=== PATIENT | female | born 1955 | race African-American/Black ===

== ENCOUNTER 2018-01-17 22:09 | Emergency (ER) | payer MEDICAID | END 2018-01-17 23:09 | disposition home or self-care (01) | LOC: D.ER 22:09 | DX: L03.032 Cellulitis of left toe (principal); M79.675 Pain in left toe(s); F17.200 Nicotine dependence, unspecified, uncomplicated; Z85.830 Personal history of malignant neoplasm of bone ==

== ENCOUNTER 2020-04-10 06:56 | Emergency (ER) | payer MEDICAID ==
[~2020-04-10] VITALS: Ht 154.9 cm; Wt 45.5 kg
[2020-04-10 07:12] VITALS: Ht 154.9 cm; Wt 45.5 kg
[2020-04-10] MEDS ORDERED: ZANAFLEX4 MG PO (07:16)
[2020-04-10] MEDS ORDERED: [UNRECOGNIZED DRUG - OTHER] (07:18)
[2020-04-10] MEDS ORDERED: BUTALB-APAP-CA1 EACH PO (07:19)
[2020-04-10 08:15] LABS: ANION GAP 7.3 mmol/L (8-16); CALCIUM 8.1 mg/dL (8.5-10.1); CARBON DIOXIDE 32.7 mmol/L (21.0-32.0); CREATININE - SERUM 1.2 mg/dL (0.6-1.3)
[2020-04-10 08:18] LABS: HEMATOCRIT 27.5 % (36.0-48.0); HEMOGLOBIN 11.6 g/dL (12-16); MCH 38.4 pg (26.0-34.0); MCHC 42.2 g/dL (31.0-37.0); MCV 91.1 fL (80.0-100.0); MEAN PLATELET VOLUME 9.6 fL (7.4-10.4); PLATELET COUNT 325 10x3/uL (130-400); RBC 3.02 10x6/uL (4.00-5.40); WBC 2.5 10x3/uL (4.8-10.8)
[2020-04-10 08:21] LABS: ALBUMIN 2.3 g/dL (3.4-5.0); BILIRUBIN - TOTAL 0.33 mg/dL (0.2-1.3); D-DIMER-QUANTITATIVE 1.31 ug/mLFEU (0.20-0.54); PROTEIN - SERUM 7.6 g/dL (6.4-8.2); URIC ACID 4.7 mg/dL (2.6-7.2)
[2020-04-10 08:24] LABS: INR 0.91 (0.85-1.17); PROTIME 12.2 SECONDS (11.6-15.0)
[2020-04-10 08:36] LABS: LYMPHOCYTES 66 % (15-50); MONOCYTES 32 % (2-11); NEUTROPHILS 2 % (40-80); PLATELET ESTIMATE NORMAL
[2020-04-10] MEDS ORDERED: ACETAMINOPHEN500 M1 PO (09:11)
[2020-04-10] MEDS ORDERED: IBUPROFEN800 MG PO (09:11)
[2020-04-10 10:00] VITALS: BP 169/91
== END 2020-04-10 10:00 | disposition home or self-care (01) ==
LOC: D.ER 06:56
PROVIDERS: Family Medicine
DX: M79.10 Myalgia, unspecified site (principal); M25.561 Pain in right knee; E87.6 Hypokalemia; M79.605 Pain in left leg; M79.604 Pain in right leg

== ENCOUNTER 2020-04-13 15:33 | Emergency (ER) | payer MEDICAID ==
[~2020-04-13] VITALS: Ht 154.9 cm; Wt 45.5 kg
[~2020-04-13 15:33] MED LIST: ACETAMINOPHEN500 M1 PO; BUTALB-APAP-CA1 EACH PO; IBUPROFEN800 MG PO; ZANAFLEX4 MG PO; [UNRECOGNIZED DRUG - OTHER]
[2020-04-13 15:37] VITALS: BP 122/79; Ht 154.9 cm; Wt 45.5 kg
[2020-04-13 16:11] LABS: HEMATOCRIT 26.8 % (36.0-48.0); HEMOGLOBIN 11.2 g/dL (12-16); MCH 38.2 pg (26.0-34.0); MCHC 41.8 g/dL (31.0-37.0); MCV 91.5 fL (80.0-100.0); MEAN PLATELET VOLUME 9.4 fL (7.4-10.4); PLATELET COUNT 297 10x3/uL (130-400); RBC 2.93 10x6/uL (4.00-5.40); RDW 16.4 % (11.5-14.5); WBC 2.5 10x3/uL (4.8-10.8)
[2020-04-13 16:24] LABS: ANION GAP 8.3 mmol/L (8-16); CALCIUM 8.4 mg/dL (8.5-10.1); CARBON DIOXIDE 31.8 mmol/L (21.0-32.0); POTASSIUM - SERUM 3.1 mmol/L (3.5-5.1)
[2020-04-13 16:31] LABS: ALBUMIN 2.1 g/dL (3.4-5.0); BILIRUBIN - TOTAL 0.44 mg/dL (0.2-1.3); PROTEIN - SERUM 7.5 g/dL (6.4-8.2)
[2020-04-13 16:55] LABS: LYMPHOCYTES 80 % (15-50); MONOCYTES 19 % (2-11); NEUTROPHILS 1 % (40-80); PLATELET ESTIMATE NORMAL
[2020-04-13 17:35] LABS: BILIRUBIN NEGATIVE (NEGATIVE); EPITHELIAL CELLS 0-5 /hpf (0-5); GLUCOSE NEGATIVE (NEGATIVE); KETONE NEGATIVE (NEGATIVE); NITRITE NEGATIVE (NEGATIVE); RED CELLS - URINE >50 /hpf (0-5); UROBILINOGEN NORMAL (NORMAL)
[2020-04-13 17:36] LABS: BACTERIA MANY /hpf (NEGATIVE)
[2020-04-13] MEDS ORDERED: VALTREX1000 MG PO (17:55)
[2020-04-13] MEDS ORDERED: BACTRIM DS TAB1 EAC1 PO (17:55)
[2020-04-13] MEDS ORDERED: HYDROCODON-ACE1 EAC7 PO (17:56)
== END 2020-04-13 18:42 | disposition home or self-care (01) ==
LOC: D.ER 15:33
PROVIDERS: Family Medicine
DX: B02.9 Zoster without complications (principal); N39.0 Urinary tract infection, site not specified; R11.2 Nausea with vomiting, unspecified; R10.11 Right upper quadrant pain

== ENCOUNTER 2020-04-21 10:15 | Inpatient (IN) | payer MEDICAID ==
[~2020-04-21] VITALS: Ht 154.9 cm; Wt 40.8 kg
[~2020-04-21 10:15] MED LIST changes: +BACTRIM DS TAB1 EAC1 PO; +HYDROCODON-ACE1 EAC7 PO; +VALTREX1000 MG PO
[2020-04-21 11:48] VITALS: BP 91/47
[2020-04-21 12:04] LABS: APTT 26.4 SECONDS (22.8-39.4); INR 1.19 (0.85-1.17)
[2020-04-21 12:05] LABS: CALC OSMOLALITY 258 mosm/kg (275-300); CALCIUM 7.8 mg/dL (8.5-10.1); CARBON DIOXIDE 26.5 mmol/L (21.0-32.0); CHLORIDE - SERUM 86 mmol/L (98-107); GLUCOSE 96 mg/dL (74-106); POTASSIUM - SERUM 3.1 mmol/L (3.5-5.1); SODIUM 124 mmol/L (136-145); UREA NITROGEN 37 mg/dL (7-18); eGFR NON AFRICAN AMERICAN 26 mL/min (90-120)
[2020-04-21 12:15] LABS: HEMATOCRIT 25.4 % (36.0-48.0); MCH 29.2 pg (26.0-34.0); MCHC 35.4 g/dL (31.0-37.0); MCV 82.5 fL (80.0-100.0); MEAN PLATELET VOLUME 10.6 fL (7.4-10.4); PLATELET COUNT 339 10x3/uL (130-400); RBC 3.08 10x6/uL (4.00-5.40); RDW 15.3 % (11.5-14.5)
[2020-04-21 12:20] LABS: ALBUMIN 1.5 g/dL (3.4-5.0); ALKALINE PHOSPHATASE 131 U/L (30-120); ALT (SGPT) 114 U/L (10-68); BILIRUBIN - TOTAL 2.07 mg/dL (0.2-1.3); CKMB 2.2 U/L (0.0-3.6); CREATINE KINASE 634 UL (21-215); PROTEIN - SERUM 7.7 g/dL (6.4-8.2); TROPONIN-I < 0.017 ng/mL (0.000-0.060)
[2020-04-21 13:01] VITALS: BP 112/69
[2020-04-21 13:15] LABS: BILIRUBIN NEGATIVE (NEGATIVE); KETONE NEGATIVE (NEGATIVE); NITRITE NEGATIVE (NEGATIVE); UROBILINOGEN NORMAL (NORMAL)
[2020-04-21 13:16] LABS: RED CELLS - URINE 25-50 /hpf (0-5)
[2020-04-21 13:18] LABS: BACTERIA MANY /hpf (NEGATIVE)
[2020-04-21 13:44] LABS: LYMPHOCYTES 62 % (15-50); MONOCYTES 33 % (2-11); NEUTROPHILS 4 % (40-80); PLATELET ESTIMATE NORMAL
--- NOTE | 2020-04-21 13:51 | NUR ---
REPORT CALLED TO TANNER AT THIS TIME.
--- NOTE | 2020-04-21 14:40 | NUR ---
PT ARRIVES TO UNIT PER YOON COREA IN PLACE, NO DISTRESS NOTED, PT MOVED SELF TO BED, REVIEWING DR NOTES, PT ASK FOR SOMETHING FOR HER COLD, UNSURE IF CODE SEPSIS WAS CALLED IN ER SO ONE IS CALLED HERE, PT HR 106 TEMP 102 BP 106/60 LACTIC ACID 2.9, NOTED THAT PT REPORTED SYMPTOMS SIMULAR TO COVID, COVID SWAB DONE AND SENT TO LAB, HOUSE AWARE OF NEED TO TRANSFER PT TO [facility] 2,
[2020-04-21 14:58] VITALS: BP 106/60; BMI 17.0
--- NOTE | 2020-04-21 16:54 | NUR ---
REPORT CALLED TO NASEEM ON MED 2, PT GOING TO ROOM 9401
--- NOTE | 2020-04-21 17:05 | NUR ---
RECEIVED PATIENT FROM MED-SURG PUI FOR COVID. PATIENT EASILY AROUSED, RESP EVEN AND UNLABORED. PATIENT APPEARS DIAPHORETIC BUT STATES SHE HAS HOT FLASHES FREQUENTLY. PATIENT PLACED IN DROPLET ISOLATION WHILE AWAITING COVID RESULTS. CALL LIGHT WITHIN REACH. PATIENT CONSUMING SMALL AMOUNTS OF PM MEAL AT THIS TIME. NO DISTRESS.
--- NOTE | 2020-04-21 17:21 | NUR ---
TAKEN TO MED 2 PER BED
--- NOTE | 2020-04-21 17:35 | NUR ---
LAB CALLED TO REPORT THAT PATIENT COVID TEST IS NEGATIVE. PATIENT TAKEN OUT OF DROPLET ISOLATION AND PLACED IN NEUTROPENIC ISOLATION DUE TO WBC COUNT OF 1.IV FLUIDS INFUSING ORDERED. NO DISTRESS.
--- NOTE | 2020-04-21 19:30 | NUR ---
PT IN BED, EYES CLOSED, RESP EVEN AND UNLABORED. NO DISTRESS NOTED, CL IN REACH, SR UP X 2.
[2020-04-21 20:00] VITALS: BP 98/56
--- NOTE | 2020-04-21 23:55 | NUR ---
PT TEMP 101.8, PT MEDICATED WITH TYLENOL 650MG.
[2020-04-22] VITALS: BP 110/68
--- NOTE | 2020-04-22 01:43 | NUR ---
I have reviewed this patient and I concur with the Shift Assessment completed by the Licensed Practical Nurse today this shift.
[2020-04-22 04:00] VITALS: BP 99/59
[2020-04-22 04:30] LABS: UDS - AMPHET NEGATIVE QUAL (NEGATIVE); UDS - BARB POSITIVE QUAL (NEGATIVE); UDS - BENZO NEGATIVE QUAL (NEGATIVE); UDS - COCAINE POSITIVE QUAL (NEGATIVE); UDS - OPIATE NEGATIVE QUAL (NEGATIVE); UDS - PCP NEGATIVE QUAL (NEGATIVE); UDS - THC NEGATIVE QUAL (NEGATIVE)
[2020-04-22 07:07] LABS: BASOPHILS 0 % (0-2); EOSINOPHILS 0.6 % (0-7); HEMOGLOBIN 7.6 g/dL (12-16); LYMPHOCYTES 30.8 % (15-50); MCH 30.2 pg (26.0-34.0); MCHC 36.2 g/dL (31.0-37.0); MCV 83.3 fL (80.0-100.0); MEAN PLATELET VOLUME 10.2 fL (7.4-10.4); MONOCYTES 68.6 % (2-11); NEUTROPHILS 0 % (40-80); PLATELET COUNT 295 10x3/uL (130-400); RBC 2.52 10x6/uL (4.00-5.40)
--- NOTE | 2020-04-22 07:17 | NUR ---
RECIEVED REPORT. ASSUMED CARE OF PATIENT. PATIENT REMAINS IN NEUTROPENIC PRECAUTIONS. SPECIAL DELIVERY MAIL CARRIER NOTIFIED PATIENT NEEDS TO BE MOVED TO DIFFERENT POD/UNIT. RESTING WITH EYES CLOSED. EASILY AROUSED. NO DISTRESS. CALL LIGHT WITHIN REACH. WHITE BOARD UPDATED, BEDSIDE SHIFT REPORT COMPLETE.
[2020-04-22 07:39] LABS: ANION GAP 12.4 mmol/L (8-16); CALCIUM 7.4 mg/dL (8.5-10.1); CREATININE - SERUM 1.8 mg/dL (0.6-1.3); POTASSIUM - SERUM 3.4 mmol/L (3.5-5.1)
[2020-04-22 08:01] LABS: WBC 1.7 10x3/uL (4.8-10.8)
[2020-04-22 08:14] LABS: ALBUMIN 0.9 g/dL (3.4-5.0); PROTEIN - SERUM 5.2 g/dL (6.4-8.2)
--- NOTE | 2020-04-22 14:00 | NUR ---
PATIENT RECEIVED TO ROOM, ALERT AND ORIENTED AND STABLE. CONTINUES ON NEURTAPENIC ISOLATION. ENCOURAGED TO USE CALL LIGHT FOR ASSSIT.
[2020-04-22 17:32] VITALS: BP 122/62
[2020-04-22 20:26] VITALS: BP 90/52
--- NOTE | 2020-04-22 20:40 | NUR ---
PATIENT RESTING IN BED WITH EYES CLOSED AND NO S/S OF DISTRESS. BED IN LOWEST POSITION AND CALL LIGHT WITHIN REACH. WILL CONTINUE TO MONITOR.
[2020-04-23 00:16] VITALS: BP 78/47
[2020-04-23 04:30] VITALS: BP 98/56
[2020-04-23 06:46] LABS: HEMATOCRIT 21.6 % (36.0-48.0); HEMOGLOBIN 7.8 g/dL (12-16); MCH 29.8 pg (26.0-34.0); MCHC 36.1 g/dL (31.0-37.0); MCV 82.4 fL (80.0-100.0); MEAN PLATELET VOLUME 11.1 fL (7.4-10.4); RBC 2.62 10x6/uL (4.00-5.40); RDW 15.2 % (11.5-14.5)
[2020-04-23 06:53] LABS: PLATELET COUNT 392 10x3/uL (130-400); WBC 1.2 10x3/uL (4.8-10.8)
[2020-04-23 07:35] LABS: ANION GAP 13.3 mmol/L (8-16); BILIRUBIN - TOTAL 1.23 mg/dL (0.2-1.3); CALCIUM 7.3 mg/dL (8.5-10.1); CARBON DIOXIDE 23.8 mmol/L (21.0-32.0); POTASSIUM - SERUM 3.1 mmol/L (3.5-5.1); PROTEIN - SERUM 5.9 g/dL (6.4-8.2); VANCOMYCIN - RANDOM 20.7 ug/mL (10.0-20.0)
[2020-04-23 07:36] LABS: ALBUMIN 1.4 g/dL (3.4-5.0)
[2020-04-23 08:54] VITALS: BP 104/58
[2020-04-23 11:27] LABS: ANISOCYTOSIS OCC; HYPOCHROMASIA OCC; LYMPHOCYTES 49 % (15-50); MONOCYTES 41 % (2-11); NEUTROPHILS 9 % (40-80); PLATELET ESTIMATE NORMAL; ROULEAUX OCC
[2020-04-23 13:05] VITALS: BP 116/71
[2020-04-23 14:13] VITALS: BMI 17.0
[2020-04-23 17:37] VITALS: BP 110/60
--- NOTE | 2020-04-23 18:26 | NUR ---
I have reviewed this patient and I concur with the Shift Assessment completed by the Licensed Practical Nurse today this shift.
--- NOTE | 2020-04-23 21:53 | NUR ---
PATIENT RESTING IN BED WITH NO S/S OF DISTRESS. PATIENT DENIES NEEDS AT THIS TIME. BED IN LOWEST POSITION AND CALL LIGHT WITHIN REACH. ADMINISTERED MEDS PER ORDERS. ENCOURAGED PATIENT TO CALL IF SHE HAS NEEDS. WILL CONTINUE TO MONITOR.
[2020-04-23 22:03] VITALS: BP 90/49
[2020-04-24] VITALS: BP 107/56
[2020-04-24 04:00] VITALS: BP 112/64
[2020-04-24 09:54] LABS: BASOPHILS 0 % (0-2); EOSINOPHILS 0.6 % (0-7); HEMATOCRIT 21.9 % (36.0-48.0); HEMOGLOBIN 7.7 g/dL (12-16); IMMATURE GRANULOCYTES 1.2 % (0-5); LYMPHOCYTES 44.3 % (15-50); MCH 27.8 pg (26.0-34.0); MCHC 35.2 g/dL (31.0-37.0); MEAN PLATELET VOLUME 9.2 fL (7.4-10.4); MONOCYTES 53.9 % (2-11); NEUTROPHILS 0 % (40-80); PLATELET COUNT 414 10x3/uL (130-400); RBC 2.77 10x6/uL (4.00-5.40); RDW 15.1 % (11.5-14.5)
[2020-04-24 10:12] LABS: ANA REFLEX - ANTICHROMATIN ABS <0.2 AI (0.0-0.9); ANA REFLEX - CENTROMERE B ABS <0.2 AI (0.0-0.9); ANA REFLEX - DBL STRANDED DNA <1 IU/mL (0-9); ANA REFLEX - DIRECT Positive (Negative); ANA REFLEX - JO-1 AB <0.2 AI (0.0-0.9); ANA REFLEX - RNP ANTIBODIES 0.4 AI (0.0-0.9); ANA REFLEX - SCL-70 <0.2 AI (0.0-0.9); ANA REFLEX - SJOGRENS AB SSA >8.0 AI (0.0-0.9); ANA REFLEX - SJOGRENS AB SSB 4.2 AI (0.0-0.9); ANA REFLEX - SMITH AB <0.2 AI (0.0-0.9)
[2020-04-24 10:14] LABS: MCV 79.1 fL (80.0-100.0); WBC 1.7 10x3/uL (4.8-10.8)
[2020-04-24 10:16] LABS: ALBUMIN 1.4 g/dL (3.4-5.0); ANION GAP 9.3 mmol/L (8-16); BILIRUBIN - TOTAL 1.45 mg/dL (0.2-1.3); CALCIUM 7.7 mg/dL (8.5-10.1); CARBON DIOXIDE 24.8 mmol/L (21.0-32.0); CREATININE - SERUM 1.7 mg/dL (0.6-1.3); POTASSIUM - SERUM 3.1 mmol/L (3.5-5.1); PROTEIN - SERUM 5.8 g/dL (6.4-8.2)
[2020-04-24 11:03] VITALS: BP 118/70
[2020-04-24 15:00] VITALS: BP 105/78
[2020-04-24 15:15] VITALS: BP 102/59
[2020-04-24 20:00] VITALS: BP 119/65
[2020-04-25 04:00] VITALS: BP 95/53
--- NOTE | 2020-04-25 07:05 | NUR ---
A&O RESTING IN BED WITH EYES OPEN. NO C/O PAIN. NO S/S OF ACUTE DISTRESS NOTED. ON NEUTROPENIC PRECAUTIONS AND CONTACT ISOLATION FOR MRSA IN BLOOD. ON 2L O2, NC. DENIES ANY NEEDS AT THIS TIME. CALL LIGHT IN REACH. WILL CONTINUE TO MONITOR.
--- NOTE | 2020-04-25 07:15 | NUR ---
I have reviewed this patient and I concur with the Shift Assessment completed by the Licensed Practical Nurse today this shift.
[2020-04-25 07:54] LABS: MCHC 36.6 g/dL (31.0-37.0); MEAN PLATELET VOLUME 9.7 fL (7.4-10.4); PLATELET COUNT 445 10x3/uL (130-400); RDW 15.4 % (11.5-14.5)
[2020-04-25 08:12] LABS: RBC 2.16 10x6/uL (4.00-5.40); WBC 2.2 10x3/uL (4.8-10.8)
[2020-04-25 08:14] LABS: HEMATOCRIT 18.3 % (36.0-48.0); HEMOGLOBIN 6.7 g/dL (12-16); MCV 84.7 fL (80.0-100.0)
[2020-04-25 08:32] LABS: LYMPHOCYTES 39 % (15-50); MONOCYTES 52 % (2-11); NEUTROPHILS 9 % (40-80); PLATELET ESTIMATE NORMAL
[2020-04-25 08:43] LABS: ALBUMIN 1.3 g/dL (3.4-5.0); ANION GAP 10.9 mmol/L (8-16); BILIRUBIN - TOTAL 1.24 mg/dL (0.2-1.3); CALCIUM 7.7 mg/dL (8.5-10.1); CARBON DIOXIDE 22.3 mmol/L (21.0-32.0); CREATININE - SERUM 1.7 mg/dL (0.6-1.3); MAGNESIUM - SERUM 1.6 mg/dL (1.8-2.4); PHOSPHOROUS 2.8 mg/dL (2.5-4.9); POTASSIUM - SERUM 3.2 mmol/L (3.5-5.1); PROTEIN - SERUM 5.9 g/dL (6.4-8.2); VANCOMYCIN - RANDOM 17.6 ug/mL (10.0-20.0)
[2020-04-25 09:58] VITALS: BP 91/58
[2020-04-25 10:50] LABS: % SATURATION 31 % (15-55); IRON 22 ug/dl (35-150); TOTAL IRON BIND CAPACITY 69 ug/dl (260-445)
[2020-04-25 10:51] LABS: UNSAT IRON BIND CAPACITY 47 ug/dl (150-375)
[2020-04-25 11:26] LABS: LDH 191 U/L (81-234)
[2020-04-25 11:27] LABS: FERRITIN 2512 ng/mL (3-244)
--- NOTE | 2020-04-25 11:36 | NUR ---
FIRST UNIT OF PRBC INFUSING. VITALS STABLE. NO C/O PAIN. NO S/S OF ACUTE DISTRESS NOTED. WILL CONTINUE TO MONITOR.
[2020-04-25 13:33] VITALS: BP 118/70
--- NOTE | 2020-04-25 14:40 | NUR ---
FIRST UNIT OF PRBC COMPLETE, 310ML INFUSED. VITALS STABLE. NO C/O PAIN. NO S/S OF ACUTE DISTRESS NOTED. SECOND UNIT OF PRBC INFUSING. WILL CONTINUE TO MONITOR.
[2020-04-25 18:25] VITALS: BP 119/66
[2020-04-26 01:27] LABS: HEMATOCRIT 27.8 % (36.0-48.0); HEMOGLOBIN 10.1 g/dL (12-16)
[2020-04-26 04:00] VITALS: BP 115/63
--- NOTE | 2020-04-26 07:10 | NUR ---
A&O RESTING IN BED WITH EYES OPEN. NO C/O PAIN. NO S/S OF ACUTE DISTRESS NOTED. ON NEUTROPENIC AND CONTACT PRECAUTIONS FOR MRSA IN BLOOD. UP WITH ASSIST. ON 2L O2, NC. IV TO RIGHT AC, NS WITH 40K+ INFUSING @ 75ML/HR. SITE PATENT WITHOUT REDNESS OR SWELLING. DENIES ANY NEEDS AT THIS TIME. CALL LIGHT IN REACH. WILL CONTINUE TO MONITOR.
--- NOTE | 2020-04-26 07:21 | NUR ---
I have reviewed this patient and I concur with the Shift Assessment completed by the Licensed Practical Nurse today this shift.
--- NOTE | 2020-04-26 08:14 | NUR ---
WARM BLANKET PROVIDED. PATIENT IS WITHOUT DISTRESS.NEUTROPENIC ISOLATION MAINTAINED
[2020-04-26 08:40] VITALS: BP 115/69
[2020-04-26 09:16] LABS: HEMATOCRIT 25.8 % (36.0-48.0); MCH 33.4 pg (26.0-34.0); MCHC 38.8 g/dL (31.0-37.0); MCV 86.3 fL (80.0-100.0); MEAN PLATELET VOLUME 11.5 fL (7.4-10.4); PLATELET COUNT 411 10x3/uL (130-400); RBC 2.99 10x6/uL (4.00-5.40); RDW 15.1 % (11.5-14.5); WBC 2.9 10x3/uL (4.8-10.8)
[2020-04-26 12:25] VITALS: BP 122/69
--- NOTE | 2020-04-26 12:50 | NUR ---
Nutrition follow-up: Pt remains in isolation for neutropenia, MRSA Diet regular neutopenic with Ensure TID PO intake ~50% of some meals per WIRE REPAIRER labs reviewed Wt: 89# Will continue to provide food choices and honor all food preferences. RDN following.
[2020-04-26 13:05] LABS: EOSINOPHILS 3 % (0-7); LYMPHOCYTES 36 % (15-50); MONOCYTES 35 % (2-11); NEUTROPHILS 18 % (40-80); PLATELET ESTIMATE INCREASED
[2020-04-26 13:06] LABS: ROULEAUX OCC
[2020-04-26 14:10] LABS: ALPHA FETOPROTEIN -(TUMOR MRK) <0.9 ng/mL (0.0-8.3); CA125 68.8 U/mL (0.0-38.1); CEA 3.5 ng/mL (0.0-4.7)
[2020-04-26 16:38] VITALS: BP 109/66
--- NOTE | 2020-04-26 19:10 | NUR ---
ASSUMED CARE OF PATIENT AT 1900, PATIENT RESTING QUIETLY WITH EYES CLOSED, AWAKENS TO VERBAL STIMULI, NO DISTRESS NOTED, IV INFUSING WITHOUT COMPLICATIONS, PATIENT INCONTINENT OF STOOL AND URINE, WILL CONTINUE TO MONITOR PATIENT, CALL LIGHT WITHIN REACH
[2020-04-26 20:00] VITALS: BP 120/65
[2020-04-27] VITALS: BP 105/52
[2020-04-27 04:00] VITALS: BP 130/73
[2020-04-27 06:38] LABS: BASOPHILS 0 % (0-2); EOSINOPHILS 1.3 % (0-7); HEMATOCRIT 26.6 % (36.0-48.0); HEMOGLOBIN 9.2 g/dL (12-16); IMMATURE GRANULOCYTES 0.3 % (0-5); LYMPHOCYTES 21.7 % (15-50); MCH 29.3 pg (26.0-34.0); MCHC 34.6 g/dL (31.0-37.0); MCV 84.7 fL (80.0-100.0); MEAN PLATELET VOLUME 9.9 fL (7.4-10.4); NEUTROPHILS 37.7 % (40-80); PLATELET COUNT 422 10x3/uL (130-400); RBC 3.14 10x6/uL (4.00-5.40); RDW 15.2 % (11.5-14.5)
[2020-04-27 07:01] LABS: ALBUMIN 1.1 g/dL (3.4-5.0); ANION GAP 13.2 mmol/L (8-16); BILIRUBIN - TOTAL 0.75 mg/dL (0.2-1.3); CALCIUM 7.7 mg/dL (8.5-10.1); CARBON DIOXIDE 23.8 mmol/L (21.0-32.0); CREATININE - SERUM 1.3 mg/dL (0.6-1.3); PHOSPHOROUS 3.1 mg/dL (2.5-4.9); PROTEIN - SERUM 5.9 g/dL (6.4-8.2); VANCOMYCIN - RANDOM 19.3 ug/mL (10.0-20.0)
--- NOTE | 2020-04-27 07:05 | NUR ---
A&O RESTING IN BED WITH EYES OPEN. NO C/O PAIN. NO S/S OF ACUTE DISTRESS NOTED. ON NEUTROPENIC AND CONTACT PRECAUTIONS. UP WITH WALKER. ON 2L O2, NC. IV TO RIGHT AC, NS WITH 40K+ INFUSING @ 75ML/HR. SITE PATENT WITHOUT REDNESS OR SWELLING. DENIES ANY NEEDS AT THIS TIME. CALL LIGHT IN REACH. WILL CONTINUE TO MONITOR.
[2020-04-27 07:16] LABS: CA 19-9 12 U/mL (0-35)
[2020-04-27 09:16] VITALS: BP 121/69
[2020-04-27 12:57] VITALS: BP 123/72
--- NOTE | 2020-04-27 13:36 | NUR ---
I have reviewed this patient and I concur with the Shift Assessment completed by the Licensed Practical Nurse today this shift.
[2020-04-27 17:06] VITALS: BP 126/77
--- NOTE | 2020-04-27 18:55 | NUR ---
A&O RESTING IN BED WITH EYES OPEN. NO C/O PAIN. NO S/S OF ACUTE DISTRESS NOTED. DENIES ANY NEEDS AT THIS TIME. CALL LIGHT IN REACH. WILL CONTINUE TO MONITOR.
--- NOTE | 2020-04-27 19:45 | NUR ---
ASSUMED CARE OF PATIENT AT 1900, PATIENT RESTING QUIETLY WITH EYES CLOSED, AWAKENS TO VERBAL STIMULI, NO DISTRESS NOTED, WILL CONTINUE TO MONITOR PATIENT, CALL LIGHT WITHIN REACH
[2020-04-27 20:00] VITALS: BP 110/64
[2020-04-28 04:00] VITALS: BP 118/69
[2020-04-28 07:48] LABS: ANION GAP 13.3 mmol/L (8-16); CALCIUM 7.8 mg/dL (8.5-10.1); CARBON DIOXIDE 21.7 mmol/L (21.0-32.0); CREATININE - SERUM 1.3 mg/dL (0.6-1.3); HEMATOCRIT 25.1 % (36.0-48.0); MAGNESIUM - SERUM 1.3 mg/dL (1.8-2.4); MCH 30.9 pg (26.0-34.0); MCHC 35.9 g/dL (31.0-37.0); MCV 86.3 fL (80.0-100.0); MEAN PLATELET VOLUME 9.7 fL (7.4-10.4); PHOSPHOROUS 3.1 mg/dL (2.5-4.9); PLATELET COUNT 414 10x3/uL (130-400); RBC 2.91 10x6/uL (4.00-5.40); RDW 15.5 % (11.5-14.5); VANCOMYCIN - RANDOM 10.5 ug/mL (10.0-20.0)
[2020-04-28 07:49] LABS: WBC 5.5 10x3/uL (4.8-10.8)
--- NOTE | 2020-04-28 08:30 | NUR ---
PT ALERT X 4. BREATH SOUNDS CLEAR BILAT. IV TO RIGHT AC NOT WORKING, REMOVED, TIP INTACT. 22G IV PLACED IN LEFT HAND, 1 ATTEMPT, PT TOLERATED WELL. PT REQUESTED BEDPAN. WHEN TOLD THAT SHE HAD TO GET UP TO THE BATHROOM AND NOT USE THE BEDPAN SHE CHOSE TO URINATE IN THE BED. LINENS CHANGED.
[2020-04-28 09:47] LABS: LYMPHOCYTES 18 % (15-50); MONOCYTES 23 % (2-11); NEUTROPHILS 59 % (40-80); PLATELET ESTIMATE NORMAL
[2020-04-28 17:45] VITALS: BP 113/65
[2020-04-28 20:00] VITALS: BP 126/81
[2020-04-29 07:10] LABS: BASOPHILS 0.3 % (0-2); EOSINOPHILS 0.7 % (0-7); HEMATOCRIT 26.3 % (36.0-48.0); HEMOGLOBIN 9.1 g/dL (12-16); IMMATURE GRANULOCYTES 1.2 % (0-5); LYMPHOCYTES 15.8 % (15-50); MCH 29.6 pg (26.0-34.0); MCHC 34.6 g/dL (31.0-37.0); MCV 85.7 fL (80.0-100.0); MEAN PLATELET VOLUME 9.6 fL (7.4-10.4); MONOCYTES 18.3 % (2-11); NEUTROPHILS 63.7 % (40-80); PLATELET COUNT 473 10x3/uL (130-400); RBC 3.07 10x6/uL (4.00-5.40); WBC 6.9 10x3/uL (4.8-10.8)
[2020-04-29 07:19] LABS: ANION GAP 13.2 mmol/L (8-16); CALCIUM 7.8 mg/dL (8.5-10.1); CARBON DIOXIDE 22.7 mmol/L (21.0-32.0); CREATININE - SERUM 1.4 mg/dL (0.6-1.3); MAGNESIUM - SERUM 1.3 mg/dL (1.8-2.4); PHOSPHOROUS 3.4 mg/dL (2.5-4.9); POTASSIUM - SERUM 3.9 mmol/L (3.5-5.1)
[2020-04-29 09:17] VITALS: BP 117/72
--- NOTE | 2020-04-29 13:54 | NUR ---
PT ALERT X 4. BREATH SOUNDS DIMINISHED TO LOWER LOBES. GIVEN PT INCENTIVE SPIROMETER AND INSTRUCTED HOW TO USE. PT IS REFUSING TO GET OUT OF THE BED TO USE THE RESTROOM. HAS BEEN UNCOOPERATIVE WITH TREATMENT. ENCOURAGED PT TO INCREASE HER INVOLVEMENT IN HER TREATMENT PLAN. IV TO LEFT HAND PATENT, DRESSING CDI. BED LOW, CALL LIGHT IN REACH. NO OTHER NEEDS AT THIS TIME.
[2020-04-29 19:09] VITALS: BP 124/75
[2020-04-29 20:00] VITALS: BP 131/74
[2020-04-30] VITALS: BP 122/67
[2020-04-30 04:00] VITALS: BP 128/72
[2020-04-30 05:28] LABS: BASOPHILS 0.5 % (0-2); EOSINOPHILS 1.2 % (0-7); HEMATOCRIT 26.9 % (36.0-48.0); HEMOGLOBIN 9.3 g/dL (12-16); IMMATURE GRANULOCYTES 4.5 % (0-5); LYMPHOCYTES 16.2 % (15-50); MCH 29.3 pg (26.0-34.0); MCHC 34.6 g/dL (31.0-37.0); MCV 84.9 fL (80.0-100.0); MONOCYTES 15.2 % (2-11); NEUTROPHILS 62.4 % (40-80); PLATELET COUNT 446 10x3/uL (130-400); RBC 3.17 10x6/uL (4.00-5.40); RDW 16.2 % (11.5-14.5); WBC 5.7 10x3/uL (4.8-10.8)
[2020-04-30 06:01] LABS: ANION GAP 10.4 mmol/L (8-16); CALCIUM 7.7 mg/dL (8.5-10.1); CARBON DIOXIDE 23.5 mmol/L (21.0-32.0); CREATININE - SERUM 1.4 mg/dL (0.6-1.3); PHOSPHOROUS 3.5 mg/dL (2.5-4.9); POTASSIUM - SERUM 3.9 mmol/L (3.5-5.1)
[2020-04-30 06:03] LABS: MAGNESIUM - SERUM 1.9 mg/dL (1.8-2.4)
[2020-04-30 08:56] VITALS: BP 110/65
--- NOTE | 2020-04-30 11:37 | NUR ---
PT ALERT X 4. BREATH SOUNDS CLEAR BILAT. IV TO RIGHT AC, PATENT, DRESSING CDI. PT REPORTING NO PAIN AT THIS TIME. PT UP TO CHAIR. LINENS CHANGED. BED LOW, CALL LIGHT IN REACH. NO OTHER NEEDS AT THIS TIME.
--- NOTE | 2020-04-30 11:56 | MORECARE ---
CASE MANAGEMENT DISCHARGE SUMMARY PATIENT: JHON SILVA UNIT: [id number] ADM DATE: 04/21/20 AGE: 64 : 53 SEX: F ROOM/BED: D.[facility]3 AUTHOR: MARIO BAKER PHYSICIAN: REFERRING PHYSICIAN: EMEKA ORTEZ MD DATE OF SERVICE: 04/30/20 Discharge Plan Patient Name: JHON SILVA Facility: [facility]:[place] : 1955 Planned Disposition: Anticipated Discharge Date: Discharge Date: Expected LOS: Initial Reviewer: [email or web address] Initial Review Date: 04/21/2020 Generated: 04/30/20 12:55 pm Patient Name: JHON SILVA Page 10854 at 1156 All edits/amendments must be made on the electronic document DICTATION DATE: 04/30/20 1155 CORPORATE ADMINISTRATIVE ASSISTANT: MILLY 04/30/20 1155 RPT#: [id number] DC DATE: STATUS: ADM IN [facility] [address] [place] [address] END OF REPORT
[2020-04-30 12:39] VITALS: BP 112/60
[2020-04-30 18:45] VITALS: BP 141/81
[2020-04-30 20:00] VITALS: BP 125/68
[2020-05-01 00:36] VITALS: BP 134/75
[2020-05-01 04:00] VITALS: BP 107/68
[2020-05-01 05:19] LABS: BASOPHILS 0.9 % (0-2); EOSINOPHILS 0.9 % (0-7); HEMATOCRIT 26.5 % (36.0-48.0); HEMOGLOBIN 9.1 g/dL (12-16); IMMATURE GRANULOCYTES 1.1 % (0-5); LYMPHOCYTES 18.8 % (15-50); MCH 29.8 pg (26.0-34.0); MCHC 34.3 g/dL (31.0-37.0); MEAN PLATELET VOLUME 9.3 fL (7.4-10.4); MONOCYTES 16.8 % (2-11); NEUTROPHILS 61.5 % (40-80); PLATELET COUNT 506 10x3/uL (130-400); RBC 3.05 10x6/uL (4.00-5.40); RDW 16.2 % (11.5-14.5); WBC 5.5 10x3/uL (4.8-10.8)
[2020-05-01 05:28] LABS: MCV 86.9 fL (80.0-100.0)
[2020-05-01 05:43] LABS: ANION GAP 11.1 mmol/L (8-16); CALCIUM 7.5 mg/dL (8.5-10.1); CARBON DIOXIDE 23.6 mmol/L (21.0-32.0); CREATININE - SERUM 1.5 mg/dL (0.6-1.3); MAGNESIUM - SERUM 1.5 mg/dL (1.8-2.4); PHOSPHOROUS 3.7 mg/dL (2.5-4.9); POTASSIUM - SERUM 3.7 mmol/L (3.5-5.1); VANCOMYCIN - RANDOM 17.3 ug/mL (10.0-20.0)
--- NOTE | 2020-05-01 08:34 | NUR ---
SHE IS ALERT, EATING BREAKFAST. SHE STATES SHE HAS HAD DIARRHEA DURING THE NIGHT. THE CALL LIGHT IS WITHIN REACH.
[2020-05-01 09:13] VITALS: BP 132/80
[2020-05-01 11:08] VITALS: BP 115/68
--- NOTE | 2020-05-01 13:36 | MORECARE ---
CASE MANAGEMENT DISCHARGE SUMMARY PATIENT: JHON SILVA UNIT: [id number] ADM DATE: 04/21/20 AGE: 64 : 53 SEX: F ROOM/BED: D[facility] AUTHOR: MARIO BAKER PHYSICIAN: REFERRING PHYSICIAN: EMEKA ORTEZ MD DATE OF SERVICE: 05/01/20 Discharge Plan Patient Name: JHON SILVA [facility] : 1955 Planned Disposition: Anticipated Discharge Date: Discharge Date: Expected LOS: Initial Reviewer: [email or web address] Initial Review Date: 05/01/2020 Generated: 05/01/20 2:36 pm Last DP export: 04/30/20 10:55 a Patient Name: JHON SILVA Page 69261 at 1336 All edits/amendments must be made on the electronic document DICTATION DATE: 05/01/20 1336 ROUTING CLERK: MILLY 05/01/20 1336 RPT#: [id number] DC DATE: STATUS: ADM IN [facility] [address] [place] [address] END OF REPORT
--- NOTE | 2020-05-01 13:53 | MORECARE ---
CASE MANAGEMENT DISCHARGE SUMMARY PATIENT: JHON SILVA UNIT: [id number] ADM DATE: 04/21/20 AGE: 64 : 53 SEX: F ROOM/BED: D.2233 AUTHOR: SAMUELDOC PHYSICIAN: REFERRING PHYSICIAN: EMEKA ORTEZ MD DATE OF SERVICE: 05/01/20 Discharge Plan Patient Name: JHON SILVA Facility: [facility]:[place] : 1955 Planned Disposition: Anticipated Discharge Date: Discharge Date: Expected LOS: Initial Reviewer: [email or web address] Initial Review Date: 05/01/2020 Generated: 05/01/20 2:53 pm Comments DCP- Discharge Planning Updated by [email or web address]: Ira Taveras on 05/01/20 12:[address] Patient Name: JHON SILVA Admission Status: ER Accout number: [id number] Admission Date: 04-21-2020 : 1955 Admission Diagnosis:SEPSIS, UNSPECIFIED ORGANISM Attending: EMEKA ORTEZ Current LOS: 10 Anticipated DC Date: Planned Disposition: Primary Insurance: [place] Discharge Planning Comments: CM met with patient at bedside after explaining CM role and obtaining verbal consent. CM discussed availability / needs of home health, REHAB and medical equipment. PATIENT STATES WILL NEED HH AND EQUI[PMENT. JORDI SIGNED FOR [facility] OR [facility]. USING WALKER WITH PT. CURRENTLY LIVES WITH HER DAUGHTER SANTY. CM TO FOLLOW AND ASSIST NEEDED. Workforce Management Manager: Ira Taveras DCPIA - Discharge Planning Initial Assessment Updated by [email or web address]: Ira Taveras on 05/01/20 1:44 pm * Is the patient Alert and Oriented? Yes * PCP NONE * Pharmacy [facility] * Preadmission Environment Home with Family * ADLs Independent * Equipment None * Other Equipment STATES WILL NEED WALKER, ETC. * List name and contact numbers for known caregivers / representatives who currently or will assist patient after discharge: SANTY CARDENAS-DAUGHTER LIVING WITH [phone] [place] [address] * Community resources currently utilized None * Additional services required to return to the preadmission environment? Yes * Can the patient safely return to the preadmission environment? Yes * Has this patient been hospitalized within the prior 30 days at any hospital? No External Providers External Provider: [facility] Next Contact Date: Service Request Date: Service Type: Resolution: Reviewer: Comments: External Provider: Ladan Wise [facility] Next Contact Date: Service Request Date: Service Type: Resolution: Reviewer: Comments: Coverage Notice Reviewer: [email or web address] Rosina Taveras Notice Issued Date-Time: 05/01/2020 13:52 Notice Type: Patient Choice Letter Notice Delivered To: Patient Relationship to Patient: Policy Service Coordinator Name: Delivery Method: - Kavita Days: Prior Verbal Notification: Recipient Understood Notice: Recipient Signature: Med Rec Note Co-signed by Attending: Coverage Notice Comment: Last DP export: 05/01/20 12:36 pm Patient Name: JHON SILVA Page 65264 at 1353 All edits/amendments must be made on the electronic document DICTATION DATE: 05/01/20 1353 FLUID DYNAMICIST: MILLY 05/01/20 1353 RPT#: [id number] DC DATE: STATUS: ADM IN [facility] [address] [place] [address] END OF REPORT
--- NOTE | 2020-05-01 14:35 | NUR ---
Nutrition follow-up: Pt continues in neutropenic precautions Diet: Regular neutropenic PO intake fair at this time No new wt to assess labs reviewed Please weigh pt RDN following.
[2020-05-01 15:09] VITALS: Ht 154.9 cm; Wt 40.8 kg
[2020-05-01] MEDS ORDERED: MIDODRINE HCL5 MG PO (15:54)
[2020-05-01] MEDS ORDERED: NICODERM CQ1 EAC3 TRANSDERM (15:54)
[2020-05-01] MEDS ORDERED: FLORAJEN3 CAPS460 MG PO (15:55)
[2020-05-01] MEDS ORDERED: PROTONIX40 MG PO (15:55)
[2020-05-01] MEDS ORDERED: VIBRAMYCIN 100100 MG PO (15:59)
--- NOTE | 2020-05-01 16:02 | MORECARE ---
CASE MANAGEMENT DISCHARGE SUMMARY PATIENT: JHON SILVA UNIT: [id number] ADM DATE: 04/21/20 AGE: 64 : 53 SEX: F ROOM/BED: D.2233 AUTHOR: SAMUEL,DOC PHYSICIAN: REFERRING PHYSICIAN: EMEKA ORTEZ MD DATE OF SERVICE: 05/01/20 Discharge Plan Patient Name: JHON SILVA Facility: [facility]:[place] : 1955 Planned Disposition: Anticipated Discharge Date: Discharge Date: Expected LOS: Initial Reviewer: [email or web address] Initial Review Date: 05/01/2020 Generated: 05/01/20 5:01 pm Comments DCP- Discharge Planning Updated by [email or web address]: Ira Taveras on 05/01/20 3:[address] Patient Name: JHON SILVA Admission Status: ER Accout number: [id number] Admission Date: 04-21-2020 : 1955 Admission Diagnosis:SEPSIS, UNSPECIFIED ORGANISM Attending: EMEKA ORTEZ Current LOS: 10 Anticipated DC Date: Planned Disposition: Primary Insurance: [place] Discharge Planning Comments: I AM FAXING REFERRAL TO [facility] AND I WILL FAX ORDER FOR WALKER TO [facility]. ANTICIPATE DC TODAY. Marketing Analytics Manager: Ira Taveras DCP- Discharge Planning Updated by [email or web address]: Ira Taveras on 05/01/20 12:[address] Patient Name: JHON SILVA Admission Status: ER Accout number: [id number] Admission Date: 04-21-2020 : 1955 Admission Diagnosis:SEPSIS, UNSPECIFIED ORGANISM Attending: EMEKA ORTEZ Current LOS: 10 Anticipated DC Date: Planned Disposition: Primary Insurance: [place] Discharge Planning Comments: CM met with patient at bedside after explaining CM role and obtaining verbal consent. CM discussed availability / needs of home health, REHAB and medical equipment. PATIENT STATES WILL NEED HH AND EQUI[PMENT. JORDI SIGNED FOR [facility] OR [facility]. USING WALKER WITH PT. CURRENTLY LIVES WITH HER DAUGHTER SANTY. CM TO FOLLOW AND ASSIST NEEDED. Marketing Analytics Manager: Ira Taveras DCPIA - Discharge Planning Initial Assessment Updated by [email or web address]: Ira Taveras on 05/01/20 1:44 pm * Is the patient Alert and Oriented? Yes * PCP NONE * Pharmacy [facility] * Preadmission Environment Home with Family * ADLs Independent * Equipment None * Other Equipment STATES WILL NEED WALKER, ETC. * List name and contact numbers for known caregivers / representatives who currently or will assist patient after discharge: SANTY CARDENAS-DAUGHTER LIVING WITH [phone] [place] [id number] * Community resources currently utilized None * Additional services required to return to the preadmission environment? Yes * Can the patient safely return to the preadmission environment? Yes * Has this patient been hospitalized within the prior 30 days at any hospital? No Coverage Notice Reviewer: [id number] - Ira Taveras Notice Issued Date-Time: 05/01/2020 13:52 Notice Type: Patient Choice Letter Notice Delivered To: Patient Relationship to Patient: Ammunition And Explosives Handler Name: Delivery Method: HAND - Hand Delivered Kavita Days: Prior Verbal Notification: Recipient Understood Notice: Yes Recipient Signature: Yes Med Rec Note Co-signed by Attending: Coverage Notice Comment: [facility]. Last DP export: 05/01/20 12:53 pm Patient Name: JHON SILVA Page 17900 at 1602 All edits/amendments must be made on the electronic document DICTATION DATE: 05/01/20 160 TELEVISION MECHANIC: MILLY 05/01/20 160 RPT#: [id number] DC DATE: STATUS: ADM IN [facility] [address] [place] [address] END OF REPORT
--- NOTE | 2020-05-01 16:42 | MORECARE ---
CASE MANAGEMENT DISCHARGE SUMMARY PATIENT: JHON SILVA UNIT: [id number] ADM DATE: 04/21/20 AGE: 64 : 51 SEX: F ROOM/BED: D.2233 AUTHOR: SAMUEL,DOC PHYSICIAN: REFERRING PHYSICIAN: EMEKA ORTEZ MD DATE OF SERVICE: 05/01/20 Discharge Plan Patient Name: JHON SILVA Facility: [facility]:[place] : 1955 Planned Disposition: Anticipated Discharge Date: Discharge Date: Expected LOS: Initial Reviewer: [email or web address] Initial Review Date: 05/01/2020 Generated: 05/01/20 5:41 pm Comments DCP- Discharge Planning Updated by [email or web address]: Ira Taveras on 05/01/20 3:[address] Patient Name: JHON SILVA Admission Status: ER Accout number: [id number] Admission Date: 04-21-2020 : 1955 Admission Diagnosis:SEPSIS, UNSPECIFIED ORGANISM Attending: EMEKA ORTEZ Current LOS: 10 Anticipated DC Date: Planned Disposition: Primary Insurance: [place] Discharge Planning Comments: I AM FAXING REFERRAL TO [facility] AND I WILL FAX ORDER FOR WALKER TO [facility]. ANTICIPATE DC TODAY. Supply Chain Manager: Ira Taveras Appended by Ira Taveras on 05/01/2020 16:41 CDT: [facility] WILL DELIVER WALKER TO PATIENT ROOM. DCP- Discharge Planning Updated by [email or web address]: Ira Taveras on 05/01/20 12:[address] Patient Name: JHON SILVA Admission Status: ER Accout number: [id number] Admission Date: 04-21-2020 : 1955 Admission Diagnosis:SEPSIS, UNSPECIFIED ORGANISM Attending: EMEKA ORTEZ Current LOS: 10 Anticipated DC Date: Planned Disposition: Primary Insurance: [place] Discharge Planning Comments: CM met with patient at bedside after explaining CM role and obtaining verbal consent. CM discussed availability / needs of home health, REHAB and medical equipment. PATIENT STATES WILL NEED HH AND EQUI[PMENT. JORDI SIGNED FOR [facility] OR [facility]. USING WALKER WITH PT. CURRENTLY LIVES WITH HER DAUGHTER SANTY. CM TO FOLLOW AND ASSIST NEEDED. Supply Chain Manager: Ira Taveras DCPIA - Discharge Planning Initial Assessment Updated by [email or web address]: Ira Taveras on 05/01/20 1:44 pm * Is the patient Alert and Oriented? Yes * PCP NONE * Pharmacy [facility] * Preadmission Environment Home with Family * ADLs Independent * Equipment None * Other Equipment STATES WILL NEED WALKER, ETC. * List name and contact numbers for known caregivers / representatives who currently or will assist patient after discharge: SANTY CARDENAS-DAUGHTER LIVING WITH [phone] [place] [phone] * Community resources currently utilized None * Additional services required to return to the preadmission environment? Yes * Can the patient safely return to the preadmission environment? Yes * Has this patient been hospitalized within the prior 30 days at any hospital? No Coverage Notice Reviewer: [id number] - Ira Taveras Notice Issued Date-Time: 05/01/2020 13:52 Notice Type: Patient Choice Letter Notice Delivered To: Patient Relationship to Patient: Diabetes Nurse Name: Delivery Method: HAND - Hand Delivered Kavita Days: Prior Verbal Notification: Recipient Understood Notice: Yes Recipient Signature: Yes Med Rec Note Co-signed by Attending: Coverage Notice Comment: [facility] AND [facility]. Last DP export: 05/01/20 3:02 pm Patient Name: JHON SILVA Page 97213 at 1642 All edits/amendments must be made on the electronic document DICTATION DATE: 05/01/201640 SURGICAL TECHNOLOGIST: MILLY 05/01/201640 RPT#: [id number] DC DATE: STATUS: ADM IN [facility] [address] [place] [address] END OF REPORT
--- NOTE | 2020-05-02 07:58 | EC ---
PATIENT:JHON SILVA DATE OF SERVICE: 04/21/20 SEX: F MEDICAL RECORD: [id number] DATE OF : [birth year] LOCATION:D.MS An AGE OF PATIENT: 64 ADMISSION DATE: 04/21/20 REFERRING PHYSICIAN: INTERPRETING PHYSICIAN: MILENA KING MD ECHOCARDIOGRAM REPORT ECHO CHARGES 4 ECHO COMPLETE Date: 04/27/20 CLINICAL DIAGNOSIS: SEPTIC SHOCK, HX: IV DRUG USE ECHOCARDIOGRAPHIC MEASUREMENTS (adult normal given) AC root (d.<3.7cm) 3.2 cm LV Septum d (<1.2 cm> 0.8 cm Valve Excursion 1.8 cm LV Septum (systole) 1.1 cm Left Atria (s.<4.0cm> 3.0 cm LVPW d(<1.2cm) 0.7 cm RV (d.<2.3cm) 2.4 cm LVPW (sytole) 1.0 cm LV diastole(<5.6CM) 4.7 cm MV E-F(>70mm/sec) cm LV systole 3.0 cm LVOT Diameter 1.7 cm MV exc.(>10mm) cm Est.ejection fraction (50-75%) % DOPPLER: LVIT cm/sec A 95 cm/sec E 84 cm/sec LA cm/sec RVSP 30.1 mmHg LVOT 113 cm/sec AOP1/2T m/s Asc. Ao 151 cm/sec RVOT 45 cm/sec RA cm/sec PA 78 cm/sec AV Gradient Peak 9.1 mmHg AV Mean 3.9 mmHg AV Area 2.0 cm MV Gradient Peak 4.2 mmHg MV Mean 2.8 mmHg MV Area cm COMMENTS: [employer] Manager: Mohinder GIBBS Poker Machine Attendant: 2 Dr. Maddox TAPE# PACS Pericardial Effusion Y DATE OF SERVICE: Adequate 2D, color flow imaging, spectral Doppler, and M-Mode. No LVH. LV internal dimension is normal. Wall motion is normal. EF is greater than or equal to 55%. Aortic valve is tricuspid. No evidence of stenosis by Doppler interrogation. Left atrium is normal. Mitral valve shows no prolapse. Trivial MR. Right-sided chambers are grossly normal. Mild TR. No vegetation seen in all 4 cardiac valves. ECHOCARDIOGRAM REPORT [id number] JHON SILVA TRANSINT:[id number] Voice Confirmation ID: [id number] DOCUMENT ID: [id number] MILENA KING MD at 0758 CC: [id number] DICTATION DATE: 04/29/20 1007 [employer]UT FARMING SUPERVISOR: 04/29/20 190 DIS IN 05/01/20 [facility] [address] [place] [id number]
--- NOTE | 2020-05-02 09:15 | MORECARE ---
CASE MANAGEMENT DISCHARGE SUMMARY PATIENT: JHON SILVA UNIT: [id number] ADM DATE: 04/21/20 AGE: 64 : 53 SEX: F ROOM/BED: D.2233 AUTHOR: SAMUEL,DOC PHYSICIAN: REFERRING PHYSICIAN: EMEKA ORTEZ MD DATE OF SERVICE: 05/02/20 Discharge Plan Patient Name: JHON SILVA Facility: [facility]:[place] : 1955 Planned Disposition: Anticipated Discharge Date: Discharge Date: 05/01/2020 Expected LOS: Initial Reviewer: [email or web address] Initial Review Date: 05/01/2020 Generated: 05/02/20 10:15 am Comments DCP- Discharge Planning Updated by [email or web address]: Ira Taveras on 05/01/20 3:[address] Patient Name: JHON SILVA Admission Status: ER Accout number: [id number] Admission Date: 04-21-2020 : 1955 Admission Diagnosis:SEPSIS, UNSPECIFIED ORGANISM Attending: EMEKA ORTEZ Current LOS: 10 Anticipated DC Date: Planned Disposition: Primary Insurance: [place] Discharge Planning Comments: I AM FAXING REFERRAL TO [facility] AND I WILL FAX ORDER FOR WALKER TO [facility]. ANTICIPATE DC TODAY. Uptwist Spinner: Ira Taveras Appended by Ira Taveras on 05/01/2020 16:41 CDT: [facility] WILL DELIVER WALKER TO PATIENT ROOM. DCP- Discharge Planning Updated by [email or web address]: Ira Taveras on 05/01/20 12:[address] Patient Name: JHON SILVA Admission Status: ER Accout number: [id number] Admission Date: 04-21-2020 : 1955 Admission Diagnosis:SEPSIS, UNSPECIFIED ORGANISM Attending: EMEKA ORTEZ Current LOS: 10 Anticipated DC Date: Planned Disposition: Primary Insurance: [place] Discharge Planning Comments: CM met with patient at bedside after explaining CM role and obtaining verbal consent. CM discussed availability / needs of home health, REHAB and medical equipment. PATIENT STATES WILL NEED HH AND EQUI[PMENT. JORDI SIGNED FOR [facility] OR [facility]. USING WALKER WITH PT. CURRENTLY LIVES WITH HER DAUGHTER SANTY. CM TO FOLLOW AND ASSIST NEEDED. Uptwist Spinner: Ira Darcy DCPIA - Discharge Planning Initial Assessment Updated by [email or web address]: Ira Darcy on 05/01/20 1:44 pm * Is the patient Alert and Oriented? Yes * PCP NONE * Pharmacy [facility] * Preadmission Environment Home with Family * ADLs Independent * Equipment None * Other Equipment STATES WILL NEED WALKER, ETC. * List name and contact numbers for known caregivers / representatives who currently or will assist patient after discharge: SANTY CARDENAS-DAUGHTER LIVING WITH [phone] [place] [phone] * Community resources currently utilized None * Additional services required to return to the preadmission environment? Yes * Can the patient safely return to the preadmission environment? Yes * Has this patient been hospitalized within the prior 30 days at any hospital? No Coverage Notice Reviewer: [id number] - Ira Taveras Notice Issued Date-Time: 05/01/2020 13:52 Notice Type: Patient Choice Letter Notice Delivered To: Patient Relationship to Patient: Skid Road Worker Name: Delivery Method: HAND - Hand Delivered Kavita Days: Prior Verbal Notification: Recipient Understood Notice: Yes Recipient Signature: Yes Med Rec Note Co-signed by Attending: Coverage Notice Comment: [facility]. Last DP export: 05/01/20 3:42 pm Patient Name: JHON SILVA Page 68282 at 0915 All edits/amendments must be made on the electronic document DICTATION DATE: 05/02/20914 FLASH DRIER OPERATOR: MILLY 05/02/20914 RPT#: [id number] DC DATE:05/01/20 STATUS: DIS IN [facility] [address] [place] [address] END OF REPORT
[2020-05-03 19:08] LABS: OVA + PARASITE EXAM Final report (())
== END 2020-05-01 17:20 | disposition home health service (06) | DRG 871 ==
LOC: D.ER 10:15 → D.MS 13:17 → D.M2 13:17 → D.MS 04-22 13:57
PROVIDERS: Family Medicine; Family Medicine Adult Medicine; Internal Medicine Hematology & Oncology; Internal Medicine Nephrology; Internal Medicine Pulmonary Disease; ADMIT Family Medicine; ATTEND Family Medicine
DX: A41.02 Sepsis due to Methicillin resistant Staphylococcus aureus (principal); E43 Unspecified severe protein-calorie malnutrition; K72.00 Acute and subacute hepatic failure without coma; J18.9 Pneumonia, unspecified organism; N39.0 Urinary tract infection, site not specified; N17.9 Acute kidney failure, unspecified; Z68.1 Body mass index [BMI] 19.9 or less, adult; E87.1 Hypo-osmolality and hyponatremia; R62.7 Adult failure to thrive; E83.51 Hypocalcemia; R50.9 Fever, unspecified; R53.81 Other malaise; M10.9 Gout, unspecified; D64.9 Anemia, unspecified; I95.9 Hypotension, unspecified

== ENCOUNTER 2020-10-12 08:27 | Inpatient (IN) | payer MEDICARE, MEDICAID ==
[2020-10-12] VITALS (45 sets, daily range): BP systolic 62–114; BP diastolic 32–82; BMI 16.2
[~2020-10-12] VITALS: Ht 154.9 cm; Wt 54.1 kg
[~2020-10-12 08:27] MED LIST changes: +AUGMENTIN 875-11 TAB PO; +FLORAJEN3 CAPS460 MG PO; +MIDODRINE HCL5 MG PO; +NICODERM CQ1 EAC3 TRANSDERM; +PROTONIX40 MG PO; +VIBRAMYCIN 100100 MG PO
--- NOTE | 2020-10-12 08:50 | NUR ---
BHAKTA CATHETER INSERTED. RETURN OF SMALL AMOUNT OF YELLOW URINE. STAT LOCK APPLIED.
--- NOTE | 2020-10-12 08:55 | NUR ---
IV LEFT FOREARM INFILTRATED. NEW IV SITED TO LEFT AC WITH 20GA CATHETER.
[2020-10-12 08:59] LABS: HEMATOCRIT 33.9 % (36.0-48.0); HEMOGLOBIN 11.4 g/dL (12-16); LYMPHOCYTE ABS# 0.44 10x3/uL (1.18-3.74); MCH 29.7 pg (26.0-34.0); MCHC 33.6 g/dL (31.0-37.0); MCV 88.3 fL (80.0-100.0); MEAN PLATELET VOLUME 9.9 fL (7.4-10.4); RBC 3.84 10x6/uL (4.00-5.40); RDW 15.2 % (11.5-14.5)
[2020-10-12 09:04] LABS: PLATELET COUNT 213 10x3/uL (130-400); WBC 0.9 10x3/uL (4.8-10.8)
--- NOTE | 2020-10-12 09:05 | NUR ---
ETOMODATE 20MG AND SUCCINYLCHOLINE 100MG GIVEN IVP. RESPIRATORY AND DR. HOWARD AT BEDSIDE. DR. HOWARD INTUBATED WITH 7.5 ENDOTRACHEAL TUBE. 23CM AT THE LIP LINE. SOFT LIMB HOLDERS ON TO PREVENT SELF EXTUBATION. VENTILATOR SETTINGS RATE 18, FIO2 100%, PEEP 5CM.
--- NOTE | 2020-10-12 09:10 | NUR ---
SUKHWINDER STARTED AFTER CATH URINE AND BLOOD CULTURES OBTAINED
[2020-10-12 09:16] LABS: APTT 41.1 SECONDS (22.8-39.4); INR 1.5 (0.85-1.17); PROTIME 16.8 SECONDS (11.6-15.0)
--- NOTE | 2020-10-12 09:25 | NUR ---
DIPRIVAN DRIP STARTED AT 5MCG/KG/MIN FOR VENTILATOR SEDATION. PATIENT IS MOVING RESTLESSLY AND RESPIRATORY RATE REMAIN >40/MIN.
--- NOTE | 2020-10-12 09:28 | NUR ---
SPOKE W DAUGHTER SUSAN ORR [phone]
[2020-10-12 09:36] LABS: UDS - AMPHET NEGATIVE QUAL (NEGATIVE); UDS - BARB NEGATIVE QUAL (NEGATIVE); UDS - BENZO NEGATIVE QUAL (NEGATIVE); UDS - COCAINE POSITIVE QUAL (NEGATIVE); UDS - OPIATE NEGATIVE QUAL (NEGATIVE); UDS - PCP NEGATIVE QUAL (NEGATIVE); UDS - THC POSITIVE QUAL (NEGATIVE)
[2020-10-12 09:37] LABS: BILIRUBIN NEGATIVE (NEGATIVE); KETONE SMALL mg/dL (NEGATIVE); NITRITE NEGATIVE (NEGATIVE); UROBILINOGEN NORMAL mg/dL (< 2)
[2020-10-12 09:38] LABS: AMORPHOUS SEDIMENT >1+ LPF (NONE SEEN); BACTERIA FEW HPF (NONE SEEN); SQUAMOUS EPITHELIAL RARE HPF (0-4); WHITE CELLS - URINE RARE HPF (0-4)
[2020-10-12 09:44] LABS: ALBUMIN 2.2 g/dL (3.4-5.0); ALKALINE PHOSPHATASE 41 U/L (30-120); BILIRUBIN - TOTAL 0.75 mg/dL (0.2-1.3); CALC OSMOLALITY 280 mosm/kg (275-300); CALCIUM 8.7 mg/dL (8.5-10.1); CARBON DIOXIDE 15.9 mmol/L (21.0-32.0); CHLORIDE - SERUM 102 mmol/L (98-107); CKMB 3.6 U/L (0.0-3.6); CREATINE KINASE 466 UL (21-215); CREATININE - SERUM 3.2 mg/dL (0.6-1.3); GLUCOSE 89 mg/dL (74-106); PROTEIN - SERUM 7.7 g/dL (6.4-8.2); SODIUM 138 mmol/L (136-145); TROPONIN-I < 0.017 ng/mL (0.000-0.060); UREA NITROGEN 29 mg/dL (7-18); eGFR NON AFRICAN AMERICAN 15 mL/min (90-120)
--- NOTE | 2020-10-12 09:46 | NUR ---
LEVOPHED INITIATED AT 5MCG/MIN. BP DECREASED TO 66/33 FOLLOWING DIPRIVAN. TITRATING DIPRIVAN UP BY 5MCG/KG/MIN EVERY 5 MINS TO EFFECTIVE SEDATION LEVEL.
[2020-10-12 10:01] LABS: POTASSIUM - SERUM 2.5 mmol/L (3.5-5.1)
[2020-10-12 10:20] LABS: ALT (SGPT) 27 U/L (10-68)
--- NOTE | 2020-10-12 11:00 | NUR ---
IV SITE AT LEFT AC INFILTRATED. NEW IV SITED TO RIGHT HAND WITH 22GA CATHETER. CONTINUE TO TITRATE LEVOPHED AND DIPRIVAN TO EFFECT SBP > 90MMHG AND OPTIMAL SEDATION LEVEL.
[2020-10-12 11:37] LABS: SARS-CoV-2 ANTIGEN NEGATIVE- SARS-COV-2 (NEGATIVE)
--- NOTE | 2020-10-12 12:30 | NUR ---
REPORT CALLED TO JOSE IN ICU.
--- NOTE | 2020-10-12 12:40 | NUR ---
DR NEAL CALLED TO REPORT NEGATIVE COVID ANTIGEN. ORDER TO OBTAIN COVID PCR SWAB AND PLACE PATIENT IN PUI STATUS.
[2020-10-12 12:50] LABS: LYMPHOCYTES 59 % (15-50); MONOCYTES 34 % (2-11); NEUTROPHILS 3 % (40-80)
--- NOTE | 2020-10-12 12:50 | NUR ---
TO CT VIA STRETCHER WITH CT STAFF AND RESPIRATORY THERAPY ASSISTING. CT OF HEAD COMPLETED. PATIENT THEN TRANSFERRED TO ICU BED 10.
[2020-10-12 12:51] LABS: PLATELET ESTIMATE NORMAL; ROULEAUX 1+
--- NOTE | 2020-10-12 13:00 | NUR ---
PT RECEIVED FROM ER. VS UNSTABLE. DR NOTIFIED NEW ORDERS RECEIEVED.
--- NOTE | 2020-10-12 14:15 | NUR ---
FAMILY CALLED GIVEN UPDATE. PT FAMILY UNABLE TO GIVE HISTORY.
--- NOTE | 2020-10-12 16:30 | NUR ---
DR SANTO PAGED AWAITING CALL BACK.
--- NOTE | 2020-10-12 17:15 | NUR ---
DR GAL THOMPSON UPDATE NEW ORDERS RECIEVED.
--- NOTE | 2020-10-12 17:30 | NUR ---
FAMILY CALLED GIVEN PUDATE REGAURDING PT STATUS
--- NOTE | 2020-10-12 18:08 | NUR ---
DR SANTO CALLED BACK GIVEN UPDATE REGAURDING PT STATUS. NEW ORDERS RECEIVED
--- NOTE | 2020-10-12 18:42 | NUR ---
DR GAL SANDS
--- NOTE | 2020-10-12 18:44 | NUR ---
DR LIMA PAGED GIVEN UPDATE. STATED WOULD BE HERE SHORTLY
[2020-10-13] VITALS (70 sets, daily range): BP systolic 83–121; BP diastolic 29–87; Ht 154.9 cm; Wt 54.1 kg
[2020-10-13 05:22] LABS: BASOPHILS 0 % (0-2); EOSINOPHILS 0 % (0-7); LYMPHOCYTE ABS# 0.44 10x3/uL (1.18-3.74); LYMPHOCYTES 47.3 % (15-50); MCH 29.7 pg (26.0-34.0); MCHC 34.5 g/dL (31.0-37.0); MEAN PLATELET VOLUME 10.7 fL (7.4-10.4); MONOCYTES 47.3 % (2-11); NEUTROPHIL ABS# 0.05 10x3/uL (1.56-6.13); NEUTROPHILS 5.4 % (40-80); RDW 15.5 % (11.5-14.5)
[2020-10-13 05:24] LABS: HEMATOCRIT 22.3 % (36.0-48.0); HEMOGLOBIN 7.7 g/dL (12-16); MCV 86.1 fL (80.0-100.0); PLATELET COUNT 122 10x3/uL (130-400); RBC 2.59 10x6/uL (4.00-5.40); WBC 0.9 10x3/uL (4.8-10.8)
[2020-10-13 05:42] LABS: ALBUMIN 1.7 g/dL (3.4-5.0); ANION GAP 18.8 mmol/L (8-16); BILIRUBIN - TOTAL 0.68 mg/dL (0.2-1.3); CALCIUM 7.3 mg/dL (8.5-10.1); CARBON DIOXIDE 17.5 mmol/L (21.0-32.0); POTASSIUM - SERUM 3.3 mmol/L (3.5-5.1); PROTEIN - SERUM 5.4 g/dL (6.4-8.2); VANCOMYCIN - RANDOM 16.4 ug/mL (10.0-20.0)
--- NOTE | 2020-10-13 07:40 | NUR ---
DR. HALL NOTIFIED OF CONSULT. DR. NEAL PAGED
--- NOTE | 2020-10-13 10:14 | NUR ---
LARGE LIQUID STOOL DARK GREEN IN COLOR. DID NOT WAKE UP AT ALL DURING BATH. LEFT SUBCLAVIAN INFUSING WITH LEVOPHED AT 12 MCG/MIN, NEOSYNPHRINE AT 60 MCG/MIN. DIPIRIVAN AT 50 MCG/KG/MIN. VASOPRESSING AT 0.04 UNITS/MIN. BICARB GTT INFUSING AT 100 ML HOUR. BHAKTA CATH SMALL AMOUNT URINE IN BAG. MONITOR ST. TALKED WITH DR. LEDBETTER, DR. SALAZAR,DR. SANTO, AND DR. PERAZA. HEAD OF BED ELEVATED 30 DEGREES.
[2020-10-13 14:10] LABS: ANION GAP 23.4 mmol/L (8-16); CREATININE - SERUM 3.3 mg/dL (0.6-1.3); POTASSIUM - SERUM 3.4 mmol/L (3.5-5.1)
[2020-10-13 14:15] LABS: CALCIUM 6.2 mg/dL (8.5-10.1)
--- NOTE | 2020-10-13 18:02 | NUR ---
DR. HALL NOTIFIED OF BMP DONE THIS AFTERNOON. NO NEW ORDERS AT THIS TIME. UNIT OF BLOOD GIVEN WITHOUT REACTION. WEANING NEOSYNPEHRINE TO MAINTAIN SBP GREATER THAN 90.
[2020-10-13 22:49] LABS: LYMPHOCYTE ABS# 0.44 10x3/uL (1.18-3.74); MCHC 34.8 g/dL (31.0-37.0); MEAN PLATELET VOLUME 11.6 fL (7.4-10.4); NEUTROPHIL ABS# 1.62 10x3/uL (1.56-6.13); RDW 15.3 % (11.5-14.5)
[2020-10-13 22:53] LABS: HEMATOCRIT 31.9 % (36.0-48.0); HEMOGLOBIN 11.1 g/dL (12-16); MCV 83.3 fL (80.0-100.0); PLATELET COUNT 68 10x3/uL (130-400); RBC 3.83 10x6/uL (4.00-5.40); WBC 2.2 10x3/uL (4.8-10.8)
[2020-10-13 23:15] LABS: ALBUMIN 1.4 g/dL (3.4-5.0); BILIRUBIN - TOTAL 1.2 mg/dL (0.2-1.3); POTASSIUM - SERUM 3.3 mmol/L (3.5-5.1); PROTEIN - SERUM 5.3 g/dL (6.4-8.2)
[2020-10-13 23:17] LABS: LYMPHOCYTES 26 % (15-50); MONOCYTES 10 % (2-11); NEUTROPHILS 62 % (40-80)
[2020-10-13 23:18] LABS: BURR CELLS 1+
[2020-10-13 23:19] LABS: PLATELET ESTIMATE DECREASED
[2020-10-13 23:22] LABS: ANION GAP 17.8 mmol/L (8-16); CARBON DIOXIDE 20.5 mmol/L (21.0-32.0); CREATININE - SERUM 4.6 mg/dL (0.6-1.3)
[2020-10-13 23:23] LABS: CALCIUM 6.2 mg/dL (8.5-10.1)
[2020-10-14] VITALS (78 sets, daily range): BP systolic 73–113; BP diastolic 48–79
[2020-10-14 04:16] LABS: BASOPHILS 0 % (0-2); EOSINOPHILS 0.4 % (0-7); HEMATOCRIT 32.7 % (36.0-48.0); HEMOGLOBIN 11.2 g/dL (12-16); IMMATURE GRANULOCYTES 0.4 % (0-5); LYMPHOCYTE ABS# 0.39 10x3/uL (1.18-3.74); LYMPHOCYTES 14.6 % (15-50); MCH 28.7 pg (26.0-34.0); MCHC 34.3 g/dL (31.0-37.0); MCV 83.8 fL (80.0-100.0); MEAN PLATELET VOLUME 10.9 fL (7.4-10.4); MONOCYTES 10.1 % (2-11); NEUTROPHIL ABS# 1.99 10x3/uL (1.56-6.13); NEUTROPHILS 74.5 % (40-80); PLATELET COUNT 63 10x3/uL (130-400); RDW 15.8 % (11.5-14.5); WBC 2.7 10x3/uL (4.8-10.8)
[2020-10-14 04:33] LABS: ALBUMIN 1.4 g/dL (3.4-5.0); ANION GAP 19.6 mmol/L (8-16); BILIRUBIN - TOTAL 1.14 mg/dL (0.2-1.3); CARBON DIOXIDE 20.9 mmol/L (21.0-32.0); CREATININE - SERUM 4.8 mg/dL (0.6-1.3); POTASSIUM - SERUM 3.5 mmol/L (3.5-5.1); PROTEIN - SERUM 5.3 g/dL (6.4-8.2); VANCOMYCIN - RANDOM 13.9 ug/mL (10.0-20.0)
[2020-10-14 04:34] LABS: CALCIUM 6.1 mg/dL (8.5-10.1)
--- NOTE | 2020-10-14 11:00 | NUR ---
FINGER STICK SUGAR STILL BELOW 20 AFTER 3 [address] SALAZAR NOTIFIED. ORDERS RECEIVED.
--- NOTE | 2020-10-14 11:34 | NUR ---
PATIENT HAS CONTINOUS DIARRHEA. RECTAL TUBE INSERTED TO MAINTAIN SKIN INTEGRITY.
--- NOTE | 2020-10-14 12:20 | NUR ---
DR. HALL HERE ORDERS RECEIVED TO GIVEN 2 AMPS OF D50W. BLOOD SENT TO LAB FOR BLOOD SUGAR. FINGER STICK READS LO
--- NOTE | 2020-10-14 12:22 | NUR ---
UNABLE TO REACH SUSAN DAUGHTER OF PATIENT. LEFT MESSAGE AT SISTER PATEL NUMBERS AND ALEXANDER NUMBER. NEED TO TALK WITH FAMILY IMMEDIATELY FOR UPDATE
--- NOTE | 2020-10-14 12:40 | NUR ---
DR. HALL NOTIFIED OF GLUCOSE IN 500'S. D10W TURNED OFF
[2020-10-15] VITALS (73 sets, daily range): BP systolic 83–146; BP diastolic 41–104
--- NOTE | 2020-10-15 06:55 | NUR ---
Nutrition follow-up/consult: Pt intubated, sedated with propofol @ 6.7 ml/hr (20 mcg/kg/min) Labs from 10/14 reviewed; no new labs for today Glucose now running high; D10 discontinued Wt: 122#; admit wt: 89# OGT in place; Jevity 1.2 jeet started @ 20 ml/hr Pt not a candidate for dialysis per branch employment coordinator Recommendations: Will continue Jeivty 1.2 jeet @ 20 with increase to goal rate of 40 ml/hr via OGT. Follow-up: 10/16/20
[2020-10-15 07:52] LABS: ALBUMIN 1.3 g/dL (3.4-5.0); BILIRUBIN - TOTAL 0.67 mg/dL (0.2-1.3); CARBON DIOXIDE 22.4 mmol/L (21.0-32.0); CREATININE - SERUM 5.3 mg/dL (0.6-1.3); PROTEIN - SERUM 5.6 g/dL (6.4-8.2)
[2020-10-15 08:23] LABS: ANION GAP 18.2 mmol/L (8-16); POTASSIUM - SERUM 4.6 mmol/L (3.5-5.1)
[2020-10-15 08:27] LABS: CALCIUM 6.5 mg/dL (8.5-10.1)
[2020-10-15 08:53] LABS: BASOPHILS 0 % (0-2); EOSINOPHILS 0.1 % (0-7); HEMATOCRIT 32.1 % (36.0-48.0); IMMATURE GRANULOCYTES 0.4 % (0-5); LYMPHOCYTE ABS# 0.43 10x3/uL (1.18-3.74); LYMPHOCYTES 6.1 % (15-50); MCH 29.4 pg (26.0-34.0); MCHC 34.3 g/dL (31.0-37.0); MONOCYTES 6.4 % (2-11); NEUTROPHIL ABS# 6.14 10x3/uL (1.56-6.13); RBC 3.74 10x6/uL (4.00-5.40)
[2020-10-15 09:03] LABS: MCV 85.8 fL (80.0-100.0); WBC 7.1 10x3/uL (4.8-10.8)
[2020-10-15 09:04] LABS: PLATELET COUNT 32 10x3/uL (130-400)
[2020-10-15 14:49] LABS: PLATELET ESTIMATE DECREASED
[2020-10-15 14:50] LABS: ROULEAUX OCC
[2020-10-16] VITALS (71 sets, daily range): BP systolic 98–134; BP diastolic 71–90
[2020-10-16 05:18] LABS: FIBRINOGEN 557 mg/dL (239-481)
[2020-10-16 05:19] LABS: APTT 38.9 SECONDS (22.8-39.4); INR 1.07 (0.85-1.17); PROTIME 12.9 SECONDS (11.6-15.0)
[2020-10-16 05:25] LABS: CARBON DIOXIDE 22.3 mmol/L (21.0-32.0); PHOSPHOROUS 5.8 mg/dL (2.5-4.9); POTASSIUM - SERUM 4.3 mmol/L (3.5-5.1); VANCOMYCIN - RANDOM 25.8 ug/mL (10.0-20.0)
[2020-10-16 05:43] LABS: CALCIUM 5.9 mg/dL (8.5-10.1)
[2020-10-16 05:53] LABS: D-DIMER-QUANTITATIVE > 20.00 ug/mLFEU (0.20-0.54)
[2020-10-16 08:01] LABS: BASOPHILS 0.1 % (0-2); EOSINOPHILS 0.1 % (0-7); HEMATOCRIT 28.4 % (36.0-48.0); HEMOGLOBIN 9.9 g/dL (12-16); IMMATURE GRANULOCYTES 0.5 % (0-5); LYMPHOCYTE ABS# 0.45 10x3/uL (1.18-3.74); LYMPHOCYTES 5.3 % (15-50); MCH 28.9 pg (26.0-34.0); MCHC 34.9 g/dL (31.0-37.0); MONOCYTES 5.9 % (2-11); NEUTROPHIL ABS# 7.42 10x3/uL (1.56-6.13); NEUTROPHILS 88.1 % (40-80); RBC 3.43 10x6/uL (4.00-5.40); RDW 16.2 % (11.5-14.5); WBC 8.4 10x3/uL (4.8-10.8)
[2020-10-16 08:03] LABS: MCV 82.8 fL (80.0-100.0)
[2020-10-16 08:04] LABS: PLATELET COUNT 21 10x3/uL (130-400)
--- NOTE | 2020-10-16 08:19 | OP ---
PATIENT NAME: JHON SILVA MEDICAL RECORD: [id number] :53 LOCATION:D.[facility] D.[id number] ADMISSION DATE:10/12/20 SURGEON: SAGRARIO WHELAN MD DATE OF OPERATION: 10/12/2020 PREOPERATIVE DIAGNOSES: 1. Septic shock. 2. Neutropenia. 3. Metastatic cancer, possibly lymphoma. 4. Drug use. 5. Hypertension. 6. Congestive heart failure undifferentiated. 7. Acute renal failure on the ventilator. POSTOPERATIVE DIAGNOSES: 1. Septic shock. 2. Neutropenia. 3. Metastatic cancer, possibly lymphoma. 4. Drug use. 5. Hypertension. 6. Congestive heart failure undifferentiated. 7. Acute renal failure on the ventilator. PROCEDURE: Right subclavian vein triple-lumen central venous line placement. SURGEON: Sagrario Whelan MD REPORT OF PROCEDURE: The patient's right chest was prepped and draped in sterile fashion. A needle was used to cannulate the right subclavian vein. The guidewire was advanced with ease. Over this wire, a dilator was placed followed by the triple lumen catheter. The catheter aspirated nonpulsatile dark blood and flushed easily in all 3 ports. This was sutured into place with 2-0 Prolenes and dressed appropriately. COMPLICATIONS: None. CONDITION: Critical. ANESTHESIA: General endotracheal. BLOOD LOSS: Minimal. PROCEDURE: Done in the ICU at the bedside. TRANSINT:[id number] Voice Confirmation ID: [id number] DOCUMENT ID: [id number] SAGRARIO WHELAN MD at 0819 CC: [id number] DICTATION DATE: 10/12/201931 COMMISSIONER OF CONCILIATION: 10/13/20 0207 ADM IN [facility] [address] [id number]
--- NOTE | 2020-10-16 09:23 | NUR ---
Nutrition follow-up: Pt intubated, sedated Continues with pressors Jevity 1.2 jeet ordered; goal rate of 40 ml/hr via OGT Labs reviewed; BUN: 71, Cr: 6.0, PO4: 5.8, K WNL BS hypoactive per nurse assessment Rectal tube in place Wt: 122# Recommend changing TF formula to Suplena @ goal rate of 40 ml/hr due to renal function and labs. RDN follow-up: 10/17/20
--- NOTE | 2020-10-16 10:46 | NUR ---
i HAVE TEXTED LAB RESULTS AND HE WILL TRY TO TALK TO FAMILY AGAIN ABOUT CODE STATUS.
--- NOTE | 2020-10-16 11:49 | NUR ---
TALKED WITH ONE OF THE PATIENT DAUGHTERS ABOUT CODE STATUS AND SHE SAID THEY WOULD GET BACK WITH ME.
[2020-10-17] VITALS (64 sets, daily range): BP systolic 120–145; BP diastolic 4–107
[2020-10-17 05:28] LABS: INR 1.13 (0.85-1.17); PROTIME 13.4 SECONDS (11.6-15.0)
[2020-10-17 05:31] LABS: ALBUMIN 1.2 g/dL (3.4-5.0); ANION GAP 25.2 mmol/L (8-16); BILIRUBIN - TOTAL 0.93 mg/dL (0.2-1.3); CARBON DIOXIDE 18.1 mmol/L (21.0-32.0); CREATININE - SERUM 6.5 mg/dL (0.6-1.3); MAGNESIUM - SERUM 1.5 mg/dL (1.8-2.4); POTASSIUM - SERUM 4.3 mmol/L (3.5-5.1); PROTEIN - SERUM 5.7 g/dL (6.4-8.2); VANCOMYCIN - RANDOM 25.4 ug/mL (10.0-20.0)
[2020-10-17 07:52] LABS: HEMATOCRIT 30.3 % (36.0-48.0); HEMOGLOBIN 10.6 g/dL (12-16); MCH 28.9 pg (26.0-34.0); MCV 82.6 fL (80.0-100.0); RBC 3.67 10x6/uL (4.00-5.40); RDW 16.3 % (11.5-14.5)
[2020-10-17 08:00] LABS: WBC 14.6 10x3/uL (4.8-10.8)
[2020-10-17 08:01] LABS: PLATELET COUNT 48 10x3/uL (130-400)
--- NOTE | 2020-10-17 08:17 | NUR ---
TUBE FEEDINGS ON HOLD AT THIS TIME. RESIDUAL 290ML. ETT AT 22 LIP.
--- NOTE | 2020-10-17 09:35 | NUR ---
OKAY TO KEEP TUBE FEEDS ON HOLD AT THIS TIME PER DR. BROCK.
--- NOTE | 2020-10-17 09:39 | NUR ---
Nutrition follow-up: Pt remains intubated, sedated Suplena on hold due to elevated residual - 290 ml Labs reviewed; MOSF per physician Wt: 124# No recommendations at this time RDN will follow-up: 10/18/20
--- NOTE | 2020-10-17 10:38 | NUR ---
CALL RECEIVED FROM ALEXANDER. GABRIEL VERIFIED. WAS TOLD PT HAD CT PLACED TODAY AND THAT TUBE FEEDINGS WERE ON HOLD.
[2020-10-17 13:07] LABS: BURR CELLS OCC; CRENATED CELLS 1+; LYMPHOCYTES 11 % (15-50); MONOCYTES 25 % (2-11); NEUTROPHILS 43 % (40-80); PLATELET ESTIMATE DECREASED; SMUDGE CELLS OCC
--- NOTE | 2020-10-17 14:45 | NUR ---
TEMPERATURE 102.5. BLOOD CULTURES ORDERED. TYLENOL GIVEN. ICE BAGS APPLIED UNDER ARMS AND GROIN. WILL CONTINUE TO MONITOR.
--- NOTE | 2020-10-17 15:42 | NUR ---
TEMP INCREASED TO 103.2 AFTER GIVING TYLENOL AND ICE PACKS. DR. BROCK NOTIFIED ORDERED MAXIPIME 1GM Q24HR. ROOM TEMP DECREASED. ICE PACKS CONTINUES WILL DESATED TO 85%. FIO INCREASED TO 60%. WILL CONTINUE TO MONITOR.
--- NOTE | 2020-10-17 17:09 | NUR ---
CALL RETURNED TO [facility]. BRIEF UPDATE GIVEN.
[2020-10-18] VITALS (40 sets, daily range): BP systolic 96–135; BP diastolic 62–97
[2020-10-18 03:50] LABS: HEMATOCRIT 27.5 % (36.0-48.0); HEMOGLOBIN 9.5 g/dL (12-16); MCH 28.9 pg (26.0-34.0); MCHC 34.5 g/dL (31.0-37.0); MCV 83.6 fL (80.0-100.0); PLATELET COUNT 60 10x3/uL (130-400); RBC 3.29 10x6/uL (4.00-5.40); RDW 16.4 % (11.5-14.5); WBC 23.1 10x3/uL (4.8-10.8)
[2020-10-18 03:51] LABS: INR 1.18 (0.85-1.17); PROTIME 13.9 SECONDS (11.6-15.0)
[2020-10-18 04:05] LABS: ANION GAP 24.3 mmol/L (8-16); CARBON DIOXIDE 18.1 mmol/L (21.0-32.0); CREATININE - SERUM 7.1 mg/dL (0.6-1.3); MAGNESIUM - SERUM 1.7 mg/dL (1.8-2.4); PHOSPHOROUS 7.8 mg/dL (2.5-4.9); POTASSIUM - SERUM 4.4 mmol/L (3.5-5.1); VANCOMYCIN - RANDOM 22.6 ug/mL (10.0-20.0)
[2020-10-18 04:24] LABS: LYMPHOCYTES 12 % (15-50); NEUTROPHILS 70 % (40-80)
[2020-10-18 04:31] LABS: PLATELET ESTIMATE DECREASED
--- NOTE | 2020-10-18 07:00 | NUR ---
REC'D REPORT AND RESUMED CARE, ETT TO VENTILATION AND SECURED, O2 SAT 100%, VSS, VASSO IN USE AT 0.02 UN/MIN, HANDS CYANOTIC/NECROTIC WITH SEWLLING, WEAK PULSES NOTED, LOWER EXTREMITY PULSES BY DOPPLER, BHAKTA TO GRAVITY WITH OZZIE DRAINAGE, RIGHT CT WITH SEROSANGUINOUS DRAINAGE TO CANISTER, REPOSITIONED UP AND TO BACK WITH HEELS FLOATED, ASSESSMENT COMPLETED PER FLOWSHEET
--- NOTE | 2020-10-18 11:00 | NUR ---
ASSESSMENT COMPLETED PER FLOWSHEET, LARGE MUCOUS BOWEL MOVEMENT TO LIZ PAD, SKIN CARE AND LINEN CHANGE COMPLETED, NO OTHER ACUTE CHANGE FROM PREVIOUS
--- NOTE | 2020-10-18 11:15 | NUR ---
RESTRAINTS EN'Chen,
--- NOTE | 2020-10-18 13:14 | NUR ---
OBTAINED CONSENT FOR CT PLACEMENT FROM SISTER PATEL RILEY, VERIFIED BY Elzbieta LAINEZ RN
--- NOTE | 2020-10-18 14:00 | NUR ---
RIGHT 24FR CHEST TUBE PLACED BY DR SHAFER
--- NOTE | 2020-10-18 15:03 | NUR ---
CHEST XRAY COMPLETED AT BEDSIDE, NO OTHER ACUTE CHANGE FROM PREVIOUS ASSESSMENT
[2020-10-19] VITALS (56 sets, daily range): BP systolic 103–124; BP diastolic 58–107
[2020-10-19 05:16] LABS: ANION GAP 21.9 mmol/L (8-16); CARBON DIOXIDE 17.2 mmol/L (21.0-32.0); CREATININE - SERUM 7.6 mg/dL (0.6-1.3); PHOSPHOROUS 8.1 mg/dL (2.5-4.9); POTASSIUM - SERUM 4.1 mmol/L (3.5-5.1); VANCOMYCIN - RANDOM 21.8 ug/mL (10.0-20.0)
[2020-10-19 05:21] LABS: MAGNESIUM - SERUM 2.2 mg/dL (1.8-2.4)
[2020-10-19 05:22] LABS: CALCIUM 6.1 mg/dL (8.5-10.1)
[2020-10-19 05:30] LABS: HEMATOCRIT 25.4 % (36.0-48.0); MCH 29.1 pg (26.0-34.0); MCHC 35.4 g/dL (31.0-37.0); MCV 82.2 fL (80.0-100.0); PLATELET COUNT 72 10x3/uL (130-400); RBC 3.09 10x6/uL (4.00-5.40); RDW 16.4 % (11.5-14.5); WBC 28.6 10x3/uL (4.8-10.8)
[2020-10-19 06:21] LABS: LYMPHOCYTES 6 % (15-50); MONOCYTES 2 % (2-11); NEUTROPHILS 92 % (40-80)
[2020-10-19 06:22] LABS: PLATELET ESTIMATE DECREASED; SCHISTOCYTES OCC; TARGET CELLS 1+
[2020-10-19 06:23] LABS: TEAR DROP CELLS OCC
--- NOTE | 2020-10-19 08:24 | NUR ---
Nutrition follow-up: Pt remains intubated, sedated Suplena TF off at this time due to pts intolerance Labs reviewed; Renal function worse and dialysis not an option per physician Wt: 125# Now with [address] Nutrition diagnosis: Severe malnutrition of acute illness R/T respiratory failure/liver bone cancer AEB the following criteria: -Observed reduced muscle mass due to inutubation x 7 days -Reduced nutritional intake since admission due to intolerance of TF and now NPO with CT placed -pt with chronic bone/liver cancer and renal failure Recommendations: Continue to provide nutrition support as tolerated with Suplena RDN follow-up: 10/22/20
--- NOTE | 2020-10-19 11:00 | NUR ---
DAUGHTER UPDATED WITH CURRENT STATUS VIA TELEPHONE-NUMBER CORRECTED TO [phone]-INCORRECTLY GIVEN ON SBAR SHEET
--- NOTE | 2020-10-19 14:24 | NUR ---
PT ALLOWED LAB DRAW-RESTING QUIETLY
--- NOTE | 2020-10-19 15:05 | NUR ---
DR PERAZA AT BEDSIDE-NUMBER FOR DAUGHTERS GIVEN-TO ADDRESS CONTINUATION OF CARE
--- NOTE | 2020-10-19 15:31 | NUR ---
CHARGE NURSE SPOKE WITH AND DAUGHTERS ON TELEPHONE-CONFIRMED DNR STATUS AT THIS TIME
[2020-10-20] VITALS (24 sets, daily range): BP systolic 112–136; BP diastolic 60–70
[2020-10-20 05:54] LABS: HEMATOCRIT 26.7 % (36.0-48.0); HEMOGLOBIN 9.4 g/dL (12-16); MCHC 35.2 g/dL (31.0-37.0); MCV 82.4 fL (80.0-100.0); PLATELET COUNT 94 10x3/uL (130-400); RBC 3.24 10x6/uL (4.00-5.40); RDW 16.3 % (11.5-14.5); WBC 35.7 10x3/uL (4.8-10.8)
[2020-10-20 06:08] LABS: ANION GAP 25.7 mmol/L (8-16); CARBON DIOXIDE 15.4 mmol/L (21.0-32.0); POTASSIUM - SERUM 4.1 mmol/L (3.5-5.1); VANCOMYCIN - RANDOM 21.7 ug/mL (10.0-20.0)
[2020-10-20 06:15] LABS: CALCIUM 6.1 mg/dL (8.5-10.1)
[2020-10-20 06:23] LABS: LYMPHOCYTES 5 % (15-50); MONOCYTES 1 % (2-11); NEUTROPHILS 93 % (40-80); PLATELET ESTIMATE NORMAL
--- NOTE | 2020-10-20 07:52 | NUR ---
dr rolon AT BEDSIDE-STATUS REPORT GIVEN-ORDERS RECIEVED-TEMP 100.9-ICE PACKS TO GROIN PLACED-FACIAL RESPONSE NOTED
[2020-10-20 14:09] LABS: HEPATITIS C ANTIBODY <0.1 S/CO RAT (0.0-0.9)
--- NOTE | 2020-10-20 17:46 | NUR ---
0700-DR CAMACHO AT BEDSIDE-STATUS REPORT GIVEN-ORDER RECIEVED-PRIMARY FLUID -D/C-DECREASED TO 10ML/H FOR CARRIER FLUID 0900-DR BROCK IN UNIT-NO CHANGES AT THIS TIME 1030-DR PERAZA AT BEDSIDE - INFORMED OF FAMILY DIRECTION-HAS LEGAL -LEAVING PT DNR-NO FURTHER DIRECTIVE 1230-DAUGHTER CALLED-STATUS REPORT GIVEN 1600-RESIDUAL 60ML-TUBE FEEDING DECREASED TO 10ML/H FROM 20ML
[2020-10-21] VITALS (22 sets, daily range): BP systolic 101–129; BP diastolic 58–75
[2020-10-21 05:55] LABS: HEMOGLOBIN 8.9 g/dL (12-16); MCH 28.9 pg (26.0-34.0); MCHC 35.6 g/dL (31.0-37.0); MCV 81.2 fL (80.0-100.0); MEAN PLATELET VOLUME 10.9 fL (7.4-10.4); PLATELET COUNT 144 10x3/uL (130-400); RBC 3.08 10x6/uL (4.00-5.40); WBC 25.1 10x3/uL (4.8-10.8)
[2020-10-21 06:07] LABS: ANION GAP 24.1 mmol/L (8-16); CARBON DIOXIDE 17.5 mmol/L (21.0-32.0); CREATININE - SERUM 8.4 mg/dL (0.6-1.3); POTASSIUM - SERUM 3.6 mmol/L (3.5-5.1)
[2020-10-21 06:16] LABS: VANCOMYCIN - RANDOM 20.2 ug/mL (10.0-20.0)
[2020-10-21 11:44] LABS: LYMPHOCYTES 5 % (15-50); MONOCYTES 8 % (2-11); NEUTROPHILS 72 % (40-80); PLATELET ESTIMATE NORMAL
--- NOTE | 2020-10-21 14:01 | NUR ---
Nutrition follow-up: Pt intubted, sedated Suplena infusing @ 20 ml/hr with goal rate 40 ml/hr Labs reviewed Wt: 131# +BM RDN follow-up: 10/24/20
[2020-10-22] VITALS (22 sets, daily range): BP systolic 107–128; BP diastolic 60–73
[2020-10-22 04:30] LABS: ANION GAP 24.2 mmol/L (8-16); CARBON DIOXIDE 15.7 mmol/L (21.0-32.0); CREATININE - SERUM 8.7 mg/dL (0.6-1.3); MAGNESIUM - SERUM 2.4 mg/dL (1.8-2.4); POTASSIUM - SERUM 3.9 mmol/L (3.5-5.1)
[2020-10-22 04:44] LABS: CALCIUM 5.8 mg/dL (8.5-10.1)
[2020-10-22 04:49] LABS: HEMATOCRIT 23.3 % (36.0-48.0); HEMOGLOBIN 8.2 g/dL (12-16); LYMPHOCYTES 4.4 % (15-50); MCH 29.4 pg (26.0-34.0); MCHC 35.2 g/dL (31.0-37.0); MEAN PLATELET VOLUME 11.1 fL (7.4-10.4); NEUTROPHILS 91.7 % (40-80); PLATELET COUNT 169 10x3/uL (130-400); RBC 2.79 10x6/uL (4.00-5.40); RDW 16.8 % (11.5-14.5)
[2020-10-22 04:50] LABS: MCV 83.5 fL (80.0-100.0); WBC 18.8 10x3/uL (4.8-10.8)
--- NOTE | 2020-10-22 06:49 | NUR ---
Patient alert to verbal/tactile stimuli, unable to follow commands. Febrile, resolved during shift with prn Tylenol and external cooling measures. POC continues, family updated by telephone.
--- NOTE | 2020-10-22 07:00 | NUR ---
RE'C REPORT AND RESUMED CARE, ETT TO VENTILATION AND SECURED, SET WITH 60% FIO2, SAT 98%, RIGHT SC WITH FENTANYL AND NS INFUSING, OGT WITH SUPLENA AT 20, RESIDUAL 50CC, RIGHT UPPER AND LOWER CT IN PLACE SEROSANGUNIOUS DRAINAGE TO CONTAINER, BHAKTA TO GRAVITY WTI DARK CONCENTRATED DRAINAGE TO BAG, NOTED HANDS B/L BLACK WITH SWELLING AND BLISTERS, B/L LEGS WITH DISCOLORATION, PULSES ABSENT IN BOTH AREAS, GROIN PULSE NOTED, ASSESSMENT COMPLETED PER FLOWSHEET, REPOSITIONED UP AND TO BACK,AROUSES TO DEEP STIMULI, TRACKS VOICE AROUND ROOM, MOVING HEAD.
--- NOTE | 2020-10-22 08:05 | NUR ---
PC FORM DR KHAN, NEED TO CHECK CHEST TUBE, NOT WORKING,
--- NOTE | 2020-10-22 08:15 | NUR ---
DRESSING CHANGE TO CHEST TUBS COMPLETED, UPPER TUBE SUTURE LOOSE, TAPPED IN PLACE
--- NOTE | 2020-10-22 08:35 | NUR ---
DR SHAFER HERE MAKING ROUNDS, NOTIFIED OF RADIOLOGIST REPORT AND ASSESSMENT, DECISION TO PLAN RESUTURE,
--- NOTE | 2020-10-22 08:52 | NUR ---
DR NEAL MAKING ROUNDS, STATES NO WE ORDERS AND PLANS TO TALK WITH FAMILY RE: PROGNOSIS
--- NOTE | 2020-10-22 09:40 | NUR ---
CT RE SUTURED BY DR SHAFER, TOLERATED WITHOUT DIFFICULTY
--- NOTE | 2020-10-22 10:51 | NUR ---
PC FROM [facility] WITH IC, +MRSA IN SPUTUM, CHANGED TO DROPLET ISOLATION
--- NOTE | 2020-10-22 11:00 | NUR ---
ASSESSMNET COMPLETED, NO ACUTE CHANGE FROM PREVIOUS
--- NOTE | 2020-10-22 13:00 | NUR ---
CVL DRESSING CHANGE COMPLETED PER PROTOCAL
--- NOTE | 2020-10-22 13:43 | NUR ---
PATIENT PS TRIAL 08/02 60% FROM 2601-5522. STOPPED DUE TO RR AT 57
--- NOTE | 2020-10-22 14:13 | NUR ---
ORAL CAR AND SUCTION COMPLETED, SCABS AND SORE AROUND MOUTH AND ON TONGUE, BLOODY SECRETIONS SUCTIONED
--- NOTE | 2020-10-22 16:00 | NUR ---
FAMILY HERE FOR VISIT, AND POSSIBLY MAKING DECISION, STATUS UPDATED, AWAITING REPORT FROM AND SPOUSES ARRIVAL FROM [place]
[2020-10-23] VITALS (24 sets, daily range): BP systolic 95–139; BP diastolic 52–75
--- NOTE | 2020-10-23 06:43 | NUR ---
PATIENT REMAINS SEDATED FOR COMFORT, WITHDRAWS TO PAIN. CHEST TUBES PATENT WITH SEROSANGUENOUS DRAINAGE.
--- NOTE | 2020-10-23 09:15 | NUR ---
DR. SANTO HERE FOR ROUNDS. ORDERS RECEIVED.
--- NOTE | 2020-10-23 09:54 | NUR ---
STARTED PT ON P/S TRIAL AT [address] SANTO. 08/02 PT STILL ON 60% FIO2. DOING WELL AT THIS TIME.
--- NOTE | 2020-10-23 10:42 | NUR ---
FENTANYL OFF AND SBT DONE X 1 HOUR BEFORE RATE INCREASED TO 30S. OTHERWISE TOLERATED WELL. FENTANYL BACK ON AT 100.
--- NOTE | 2020-10-23 10:47 | NUR ---
P/S TRIAL ENDED AT 1042. PT RR INCREASED TO 35 AND ANXIOUS. PLACED BACK ON RATE VC/AC/ TRIAL LASTED FOR 1 HR.
[2020-10-24] VITALS (24 sets, daily range): BP systolic 92–118; BP diastolic 49–70
--- NOTE | 2020-10-24 10:15 | NUR ---
Nutrition follow-up: Pt discussed during IDT team rounds Pt intubated, sedated Suplena infusing @ 30 ml/hr -> goal rate 40 ml/hr Labs reviewed; renal function continues to worsen and not a candidate for dialysis Wt: 124# +BM, loose; reglan discontinued RDN follow-up: 10/26/20
[2020-10-24 14:03] LABS: BASOPHILS 0.1 % (0-2); EOSINOPHILS 0.1 % (0-7); IMMATURE GRANULOCYTES 1.5 % (0-5); LYMPHOCYTE ABS# 0.54 10x3/uL (1.18-3.74); LYMPHOCYTES 3.1 % (15-50); MCH 28.2 pg (26.0-34.0); MCV 82.9 fL (80.0-100.0); MEAN PLATELET VOLUME 10.1 fL (7.4-10.4); MONOCYTES 1.1 % (2-11); NEUTROPHIL ABS# 16.46 10x3/uL (1.56-6.13); NEUTROPHILS 94.1 % (40-80); RBC 2.34 10x6/uL (4.00-5.40); RDW 16.7 % (11.5-14.5); WBC 17.5 10x3/uL (4.8-10.8)
[2020-10-24 14:05] LABS: HEMATOCRIT 19.4 % (36.0-48.0); HEMOGLOBIN 6.6 g/dL (12-16); PLATELET COUNT 345 10x3/uL (130-400)
[2020-10-24 14:16] LABS: ALBUMIN 0.8 g/dL (3.4-5.0); ANION GAP 24.1 mmol/L (8-16); BILIRUBIN - TOTAL 0.33 mg/dL (0.2-1.3); CREATININE - SERUM 9.1 mg/dL (0.6-1.3); POTASSIUM - SERUM 4.1 mmol/L (3.5-5.1); PROTEIN - SERUM 6.1 g/dL (6.4-8.2)
--- NOTE | 2020-10-24 14:16 | NUR ---
LAB REPORT HGB, 6.6, PAGED DR SANTO
[2020-10-24 14:28] LABS: CALCIUM 6.1 mg/dL (8.5-10.1)
--- NOTE | 2020-10-24 19:29 | NUR ---
RECEIVED BEDSIDE REPORT. PATIENT RESTING COMFORTABLY IN BED. PATIENT IS RECEIVING FIRST UNIT OF PRBC INITITATED BY AM SHIFT. PATIENT REMAINS ON MECHANICAL VENTILATION. NO S/S OF DISTRESS. NO C/O PAIN. CALL LIGHT WITHIN REACH. WILL CPOC.
[2020-10-25] VITALS (24 sets, daily range): BP systolic 102–140; BP diastolic 56–71
--- NOTE | 2020-10-25 09:41 | NUR ---
CPAP TRIAL STARTED AT 0940. OXYGEN SATURATION 98% UPON LEAVING THE ROOM. PATIENT IS TOLERATING TRIAL WELL SO FAR. RSBI 30. RESPIRATIONS 20.
--- NOTE | 2020-10-25 09:44 | NUR ---
CPAP TRIAL 06/04 80%
[2020-10-25 10:49] LABS: ALBUMIN 0.8 g/dL (3.4-5.0); ANION GAP 25.1 mmol/L (8-16); BILIRUBIN - TOTAL 0.41 mg/dL (0.2-1.3); CARBON DIOXIDE 15.3 mmol/L (21.0-32.0); CREATININE - SERUM 9.1 mg/dL (0.6-1.3); POTASSIUM - SERUM 4.4 mmol/L (3.5-5.1); PROTEIN - SERUM 6.2 g/dL (6.4-8.2)
[2020-10-25 10:51] LABS: CALCIUM 6.2 mg/dL (8.5-10.1)
[2020-10-25 11:09] LABS: LYMPHOCYTES 3.2 % (15-50); MCH 28.5 pg (26.0-34.0); MCHC 34.4 g/dL (31.0-37.0); MCV 82.8 fL (80.0-100.0); MEAN PLATELET VOLUME 10.7 fL (7.4-10.4); NEUTROPHILS 94.9 % (40-80); PLATELET COUNT 324 10x3/uL (130-400); RDW 18.1 % (11.5-14.5)
[2020-10-25 11:12] LABS: HEMATOCRIT 27.9 % (36.0-48.0); HEMOGLOBIN 9.6 g/dL (12-16); RBC 3.37 10x6/uL (4.00-5.40); WBC 11.1 10x3/uL (4.8-10.8)
--- NOTE | 2020-10-25 11:22 | NUR ---
Dr. Arenas notified of ca results so far no new orders.
--- NOTE | 2020-10-25 15:03 | NUR ---
cpap trial ended at 1500. patient tolerated trial well. patient is now back on ac vc 20/420/3/80%. nurse was notified.
--- NOTE | 2020-10-25 16:21 | NUR ---
CVP DONE EARLY AM WAS 5 NOW CVP 4.
--- NOTE | 2020-10-25 19:00 | NUR ---
RESIDUALS 200ML UPON INITIAL ASSESSMENT. TUBE FEEDINGS HELD. WILL REASSESS. TEMP 100.7 AXILLARY. BLANKETS REMOVED.
--- NOTE | 2020-10-25 21:00 | NUR ---
RESIDUALS 20ML. TUBE FEEDINGS RESTARTED AT 15ML.
--- NOTE | 2020-10-25 22:00 | NUR ---
RESIDUALS 25 ML. TF INCREASED 30ML/HR.
[2020-10-26] VITALS (33 sets, daily range): BP systolic 85–120; BP diastolic 47–65
--- NOTE | 2020-10-26 03:30 | NUR ---
CHG BATH GIVEN. COMPLETE LINEN CHANGE. PT CLEANED OF LARGE BOWEL MOVEMENT. LIZ CARE AND BHAKTA CARE PROVIDED. PT REPOSITIONED. TOLERATED WELL.
--- NOTE | 2020-10-26 12:33 | NUR ---
Nutrition follow-up: Pt intubated Pt has not been tolerating TF of Suplena with high residuals reported per nursing. Suplena now infusing @ 30 ml/hr +BM CPAP trials are ongoing as pt can tolerate Labs: BUN: 202, Cr: 901, Alb: 0.8 Wt: 122# Pt not a candidate for dialysis RDN will follow-up: 10/29/20
--- NOTE | 2020-10-26 17:57 | NUR ---
PT AXILLARY TEMP 101.9 @ 1700. MD SANTO INFORMED. IV TYLENOL ORDERED. PT CAN NO TOLERATE RECTAL OR OG TUBE ADMIN DUE TO EXTREME SKIN DECOMPOSITION AND NO EVIDENCE OF DIGESTION ( LARGE RESIDUALS ALL SHIFT DISPITE TF TURNED OFF AT 0700 TODAY). PT ICE PACKED. WILL CONTINUE TO MONITOR.
[2020-10-26 18:28] LABS: BASOPHILS 0 % (0-2); EOSINOPHILS 0.6 % (0-7); HEMATOCRIT 25.4 % (36.0-48.0); HEMOGLOBIN 8.8 g/dL (12-16); LYMPHOCYTE ABS# 0.26 10x3/uL (1.18-3.74); LYMPHOCYTES 5.1 % (15-50); MCH 28.1 pg (26.0-34.0); MCHC 34.6 g/dL (31.0-37.0); MCV 81.2 fL (80.0-100.0); MEAN PLATELET VOLUME 10.1 fL (7.4-10.4); MONOCYTES 0.2 % (2-11); NEUTROPHIL ABS# 4.66 10x3/uL (1.56-6.13); NEUTROPHILS 92.1 % (40-80); PLATELET COUNT 348 10x3/uL (130-400); RBC 3.13 10x6/uL (4.00-5.40); RDW 17.2 % (11.5-14.5); WBC 5.1 10x3/uL (4.8-10.8)
[2020-10-26 19:01] LABS: ALBUMIN 0.8 g/dL (3.4-5.0); BILIRUBIN - TOTAL 0.4 mg/dL (0.2-1.3); CARBON DIOXIDE 15.2 mmol/L (21.0-32.0); CREATININE - SERUM 9.6 mg/dL (0.6-1.3); PROTEIN - SERUM 5.8 g/dL (6.4-8.2); VANCOMYCIN - RANDOM 20.7 ug/mL (10.0-20.0)
[2020-10-26 19:04] LABS: ANION GAP 25.9 mmol/L (8-16); POTASSIUM - SERUM 5.1 mmol/L (3.5-5.1)
[2020-10-27] VITALS (51 sets, daily range): BP systolic 89–122; BP diastolic 48–71
[2020-10-27 04:40] LABS: BASOPHILS 0.3 % (0-2); EOSINOPHILS 0.3 % (0-7); HEMATOCRIT 26.2 % (36.0-48.0); HEMOGLOBIN 9.1 g/dL (12-16); LYMPHOCYTE ABS# 0.24 10x3/uL (1.18-3.74); LYMPHOCYTES 6.1 % (15-50); MCH 28.4 pg (26.0-34.0); MCHC 34.7 g/dL (31.0-37.0); MCV 81.9 fL (80.0-100.0); MEAN PLATELET VOLUME 9.7 fL (7.4-10.4); MONOCYTES 2.6 % (2-11); NEUTROPHIL ABS# 3.51 10x3/uL (1.56-6.13); NEUTROPHILS 89.7 % (40-80); PLATELET COUNT 364 10x3/uL (130-400); RDW 17.1 % (11.5-14.5); WBC 3.9 10x3/uL (4.8-10.8)
[2020-10-27 05:29] LABS: ALBUMIN 0.7 g/dL (3.4-5.0); ANION GAP 27.3 mmol/L (8-16); BILIRUBIN - TOTAL 0.5 mg/dL (0.2-1.3); CARBON DIOXIDE 13.7 mmol/L (21.0-32.0); CREATININE - SERUM 9.5 mg/dL (0.6-1.3); PROTEIN - SERUM 6.5 g/dL (6.4-8.2)
[2020-10-27 05:44] LABS: CALCIUM 6.6 mg/dL (8.5-10.1)
--- NOTE | 2020-10-27 06:35 | NUR ---
DR. SANTO AT BEDSIDE. NOTIFIED OF CRITICAL CALCIUM OF 6.6 AND BUN 227. NO NEW ORDERS RECEIVED AT THIS TIME.
--- NOTE | 2020-10-27 10:13 | NUR ---
PT S FAMILY CALLED TO OBTAIN UP DATE ON PT. RN FORWARDED DR. SANTO'S REQUEST FOR A FAMILY MEETING TO DISCUSS HOSPICE SOON POSSIBLE. PT'S DAUGHTER STATED SHE WANTS TO PLACE HER MOTHER ON COMFORT CARE MEASURES WHEN SHE AND OTHER FAMILY ARRIVES TO [place] BEDSIDE. DAUGHTER STATES SHE WILL BE AT [facility] NO LATER THAN 1200 TODAY (10/27/20). RN INFORMED MD SANTO OF PT'S FAMILY REQUEST AND ARRIVAL TIME @ 1000. WILL CONTINUE TO MONITOR. RICHI/BSN
--- NOTE | 2020-10-27 11:24 | NUR ---
TERMINAL EXTUBated quality review trainer at bedside. patient eyes open.
--- NOTE | 2020-10-27 12:00 | NUR ---
RN AND MD SANTO SPOKE WITH FAMILY AT PT'S BEDSIDE. DECISION WAS MADE TO WITHDRAW CARE AT THIS TIME. COMFORT CARE/TERMINAL EXTUBATION ORDERS PLACED. WILL PROCEED AFTER ALL FAMILY HAS VISITED. WILL CONTINUE TO MONITOR.
--- NOTE | 2020-10-27 12:14 | NUR ---
CARE OF PT TRANSFERED TO [facility]. CHARGE NURSE AWARE.
--- NOTE | 2020-10-27 12:40 | NUR ---
TERMINMAL EXTUBATION DONE. TOP IRONER AT BEDSIDE. FAMILY HERE IN WAITING AREA. 10 MG OF MORPHINE GIVEN.
--- NOTE | 2020-10-27 13:10 | NUR ---
ativan given for resp greater than 30. partition notcher in room.
--- NOTE | 2020-10-27 14:31 | NUR ---
PATIENT IN [place]. DR. NEAL NOTIFIED. STATES HE WILL CALL ER DOUGLAS TO PRONOUNCE. DAUGHTER NOTIFIED OF PATIENT PASSING.
--- NOTE | 2020-10-27 17:29 | NUR ---
PAGED DR. NEAL ABOUT PRONOUCING PATIENT
--- NOTE | 2020-10-27 19:12 | NUR ---
HOME REP HERE TO UI PROGRAMMER PT.
== END 2020-10-27 18:00 | DRG 870 ==
LOC: D.ER 08:27 → D.ICU 09:59
PROVIDERS: Emergency Medicine; Family Medicine; Internal Medicine; Internal Medicine Nephrology; Internal Medicine Pulmonary Disease; ADMIT Legal Medicine; ATTEND Legal Medicine
PROC: 5A1955Z Respiratory Ventilation, Greater than 96 Consecutive Hours (ICD-10-PCS; principal; 2020-10-12)
PROC: 0BH17EZ Insertion of Endotracheal Airway into Trachea, Via Natural or Artificial Opening (ICD-10-PCS; 2020-10-12)
PROC: 05H533Z Insertion of Infusion Device into Right Subclavian Vein, Percutaneous Approach (ICD-10-PCS; 2020-10-12)
PROC: 0W9930Z Drainage of Right Pleural Cavity with Drainage Device, Percutaneous Approach (ICD-10-PCS; 2020-10-17)
PROC: 0W9930Z Drainage of Right Pleural Cavity with Drainage Device, Percutaneous Approach (ICD-10-PCS; 2020-10-18)
DX: A41.02 Sepsis due to Methicillin resistant Staphylococcus aureus (principal); R65.21 Severe sepsis with septic shock; G92 Toxic encephalopathy; E43 Unspecified severe protein-calorie malnutrition; K72.00 Acute and subacute hepatic failure without coma; N17.0 Acute kidney failure with tubular necrosis; J96.01 Acute respiratory failure with hypoxia; J15.212 Pneumonia due to Methicillin resistant Staphylococcus aureus; E87.1 Hypo-osmolality and hyponatremia; E87.2 Acidosis; Z68.1 Body mass index [BMI] 19.9 or less, adult; J93.9 Pneumothorax, unspecified; C41.9 Malignant neoplasm of bone and articular cartilage, unspecified; Z66 Do not resuscitate; Z87.891 Personal history of nicotine dependence; I95.9 Hypotension, unspecified; R62.7 Adult failure to thrive; D70.9 Neutropenia, unspecified; E83.51 Hypocalcemia; E16.2 Hypoglycemia, unspecified; F14.90 Cocaine use, unspecified, uncomplicated; F12.90 Cannabis use, unspecified, uncomplicated; D50.9 Iron deficiency anemia, unspecified; R23.0 Cyanosis